=== PATIENT | male | born 1960 | race Caucasian/White ===

== ENCOUNTER 2024-02-12 15:15 | Inpatient (IN) | payer BC, MEDICARE, SELFPAY ==
[2024-02-12 15:45] VITALS: BP 121/67; PULSE 83; RESP 16; TEMP 36.9; O2SAT 96; BMI 29.0
[2024-02-12 18:00] VITALS: BP 121/67; PULSE 83; RESP 16; TEMP 36.9; O2SAT 98
[2024-02-12] MEDS: oxyCODONE 5 MG Tablet PO (21:19)
[2024-02-12 22:00] VITALS: PULSE 83; O2SAT 98
[2024-02-12] MEDS: Pregabalin 50 MG Capsule PO (22:08)
[2024-02-12] MEDS: Senna/Docusate Sodium 1 Tablet 2 TABLET PO (22:08)
[2024-02-12] MEDS: Methocarbamol 750 MG Tablet PO (22:08)
[2024-02-12] MEDS: Atorvastatin Calcium 10 MG Tablet PO (22:08)
[2024-02-12] MEDS: Acetaminophen 500 MG Tablet 1000 MG PO (22:08)
[2024-02-12] MEDS: Heparin Injection (Vial) 5,000 UNIT/ML VIAL 5000 UNIT SC (22:09)
[2024-02-13] MEDS: oxyCODONE 5 MG Tablet PO ×2 (03:53→10:05)
[2024-02-13 05:33] VITALS: BP 127/56; PULSE 74; RESP 16; TEMP 36.7; O2SAT 97; BMI 28.8
[2024-02-13] MEDS: Methocarbamol 750 MG Tablet PO ×3 (06:20→21:19)
[2024-02-13] MEDS: Acetaminophen 500 MG Tablet 1000 MG PO ×3 (06:20→21:18)
[2024-02-13] MEDS: Levothyroxine 137 MCG Tablet PO (06:20)
[2024-02-13] MEDS: Heparin Injection (Vial) 5,000 UNIT/ML VIAL 5000 UNIT SC ×3 (06:20→21:23)
[2024-02-13 08:04] LABS: Hematocrit 21.8 % (40-54); Hemoglobin 7.3 g/dL (13.0-16.5); Mean Corp Hgb Conc 33.5 g/dL (32-36); Mean Corpuscular Hgb 34.3 pg (27.0-32.0); Mean Corpuscular Volume 102.3 fL (80-94); Mean Platelet Vol. 8.9 fl (6.2-12.0); POSITIVE COUNT YES; POSITIVE MORPHOLOGY YES; Platelet Count 402 K/mm3 (150-450); RBC Distribution Width CV 12.8 % (11.6-14.6); RBC Distribution Width SD 47.8 fl (35.1-43.9); Red Blood Count 2.13 M/mm3 (4.6-6.2); White Blood Count 10.2 K/mm3 (4.4-11.0)
[2024-02-13 08:07] LABS: Differential Indicated MANUAL DIFF
[2024-02-13] MEDS: Polyethylene Glycol 3350 17 GM PACKET PO (08:18)
[2024-02-13] MEDS: Pregabalin 50 MG Capsule PO ×2 (08:18→20:17)
[2024-02-13] MEDS: Tamsulosin HCl 0.4 MG Capsule PO (08:18)
[2024-02-13] MEDS: Calcium Carb/Vitamin D 1 TABLET Tablet PO (08:18)
[2024-02-13] MEDS: Multivitamins,Therapeutic Tablet 1 TABLET PO (08:18)
[2024-02-13] MEDS: NIFEdipine 30 MG Tablet PO (08:19)
[2024-02-13] MEDS: Senna/Docusate Sodium 1 Tablet 2 TABLET PO (08:19)
[2024-02-13] MEDS: Lisinopril 20 MG Tablet PO (08:19)
[2024-02-13 08:40] LABS: Eosinophil 1 % (0-5); Lymphocyte 20 % (19-41); Metamyelocyte 5 % (0-1); Monocyte 1 % (0-10); Myelocyte 2 % (0-0); Neutrophil-Band 5 % (0-5); Neutrophil-Segmented 66 % (47-70); Total Cells Counted 100 (MANUAL DIFF)
[2024-02-13 08:41] LABS: Absolute Lymphocyte Count 2.03 X10^3/uL (0.83-4.51); Absolute Neutrophil Count 7.2 X10^3/uL (2.0-7.7); Hypochromasia 1+; Platelet Estimate ADEQUATE (ADEQ); Red Cell Morphology N CYTIC NORMAL (NORM C&C)
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
[2024-02-13 10:00] VITALS: PULSE 85; O2SAT 98
--- NOTE | 2024-02-13 11:23 | REHABEVAL_ITS ---
Admission Information Primary Diagnosis:: Debility secondary to lumbar laminectomy/fusion/lumbar canal stenosis Status Changes from Prescreening?: No changes Identified Actual Problem List:: Skin Intergrity, Pain, ALteration in Cmfrt, Bladder Incontinence (Urine retention), Bowel, Constipation, Alteration in Sleep, Mobility Impaired, Self Care Deficit, BP, Hypertension, Fluid Change-Dehydration and Alteration-Leisure Activ. Potential Problem List:: DVT, Bleeding, Infection, UTI, Aspiration, Falls, Skin Integrity and Depression Risk of Complications DVT: BELKYS Hose and - (Heparin 5000 units SQ every 8 hours) Bleeding: Monitor Lab Values, Nursing to Teach Precautions for anti-coagulation therapy., Wound, if applicable, to be assessed every shift. and Stroke patients assessed for lethargy or change in status. Infection: Clinical Staff to Monitor for S/S of infection: and S/S of infection include fever, redness, warmth, etc. Urinary Tract Infection: Monitor for frequency, burning, discomfort, or incontinence. and Nursing will obtain urine sample for urinalysis and C&S when ordered. Aspiration: Clinical staff will monitor for coughing, drooling, congestion., Speech will evaluate swallowing and dsyphasia. and Nursing will monitor patient swallowing during meals. Falls: Patient will be evaluated for Fall Precautions and Patient will be placed on Fall Precautions as indicated per protocol. Skin Breakdown: Nursing will assess skin daily using assessment tool. and Nursing will place on Skin Breakdown Precautions as indicated. Pain: Clinical staff will assess patient's pain level per protocol., Medications will be given, if needed, and the pain level reassessed. and Other methods: Massage, distraction, decrease stimulus, etc. used PRN. Plan of Care Patient requires physician specializing in physical medicine and rehab oversight to provide close medical supervision of rehab issues including: Pain Management, Sleep Problems, Bowel and Bladder, Medical and co-morbidity Management, DVT prophylaxis, Rehabilitation Leadership and Coordination of treatment team Patient needs Physical Therapy: For a minimum of 1 hour and At least 5 out of 7 days Patient needs Physical Therapy to improve:: Mobility, Strengthening, Transfers, Stretching, ROM, Endurance, Stairs, Gait and Balance Patient needs Occupational Therapy: For a minimum of 1 hour and At least 5 out of 7 days Patient needs Occupational Therapy to improve ADL's incl.: Eating, Grooming, Bathing, Dressing, Toileting, Toilet transfers, Community Reintegration, Higher functioning activities, Household tasks, Adaptive Equipment, Splinting and Other activities as determined Patient requires 24/7 Rehabilitation Nursing for: Pain Issues, Identifying and preventing risk factors, Monitoring and reporting current medical conditions, Assisting with ambulation, transfer, and all ADL's, Teaching patients about disease process and medications, Family teaching, Providing safe environment, Bowel and Bladder Issues, Skin integrity and Medication Management Patient needs Effervescent Salts Compounder/ Case Management for: Discharge Planning, Arranging Home Equipment or Services and Family Interventions Patient needs Dietary and Nutrition Services for: Adequate Nutrition, Nutritional Supplements and Nutritional Education Goals Goals Patient will remain: free from falls Patient will perform eating at: MOD I level of assist. Patient will perform bed mobility at: MOD I level of assist. Patient will complete transfers from bed to chair at: MOD I level of assist. Patient will ambulate: - (225 feet with least restrictive device at standby assist on various surfaces) Patient will complete upper body dressing at: MOD I level of assist. Patient will complete lower body dressing at: MOD I level of assist. (Mod I with adaptive equipment as needed) Patient will complete toilet transfer at: MOD I level of assist. Patient will complete toileting at: MOD I level of assist. Patient will perform bathing at: MOD I level of assist. (Upper body bathing independently and lower body bathing at mod I with adaptive equipment as needed) Patient will perform Tub/Shower transfer at: - (Supervision with DME as needed) Patient will complete grooming at: MOD I level of assist. Patient will complete home management skills at: MOD I level of assist. Patient will achieve: - (3 short curb steps with wheeled walker at contact-guard assist) Patient will have pain level of: of 3 or less Patient's skin will: remain intact Patient will receive: adequate nutrition. Discharge Planning Pt Prognosis for Sig. Practical Improv. w/in Reasonable Time: Good Estimated Length of stay (days): 21 Anticipated D/C Destination: Home with Outpt Therapy Was Preadmission Assessment Accurate?: Yes
[2024-02-13 11:29] LABS: ALB/GLOB Ratio 0.7 RATIO (0.9-2.4); AST(SGOT) 69 U/L (15-37); Alanine Aminotransfer ALT/SGPT 90 U/L (16-61); Albumin, Serum 2.4 g/dL (3.2-5.0); Alkaline Phosphatase 253 U/L (45-117); Anion Gap 5 (5-15); BUN 20 mg/dL (7-18); BUN/Creat Ratio 17.4 RATIO (10-20); Calcium,Total 8.5 mg/dL (8.5-10.1); Chloride 98 mmol/L (98-107); Creatinine, Serum 1.15 mg/dL (0.70-1.30); EST Glomerular Filtration Rate 68 mL/min (>60); Est Glom Filt Rate - Afr Amer 82 mL/min (>60); Estimated Creatinine Clearance 72.72 ml/min; Globulin 3.6 g/dL (2.2-4.2); Glucose 109 mg/dL (74-106); Magnesium 2.3 mg/dL (1.6-2.6); Phosphorus 2.2 mg/dL (2.5-4.9); Potassium 4.4 mmol/L (3.5-5.1); Sodium Level 131 mmol/L (136-145)
[2024-02-13 12:47] LABS: Mucous, Urine 0 SEEN /hpf (<or=2+); Squamous Epithelial Cells - UA 0 SEEN /hpf (0-5)
[2024-02-13 12:58] LABS: Color, Urine Yellow (Yellow); Glucose, Dipstick Normal (Normal); Ketone-Dipstick Negative (Negative); Leukocyte Esterase-Dipstick 500 /ul (Negative); Nitrite-Dipstick Negative (Negative); Occult Blood-Urine 10 /ul (Negative); Protein-Dipstick 15 mg/dl (Negative); Urine Bilirubin Dipstick Negative (Negative); Urine Clarity Clear (Clear); Urine Urobilinogen Normal (Normal); Urine pH 6.5 (5.0 - 8.0)
[2024-02-13 13:17] LABS: Bacteria 1+ /hpf (None Seen); Red Blood Cells-Urine 0-5 SEEN /hpf (0-5); White Blood Cells 5-10 SEEN /hpf (0-5)
[2024-02-13] MEDS: oxyCODONE 5 MG Tablet 10 MG PO ×2 (13:48→21:18)
[2024-02-13] MEDS: Magnesium Hydroxide 30 ML UDC PO (15:49)
[2024-02-13] MEDS: Ensure Plus High Protein 120 ML LIQUID PO (17:29)
[2024-02-13 18:00] VITALS: BP 112/51; PULSE 81; RESP 16; TEMP 36.6; O2SAT 99
[2024-02-13 21:00] VITALS: PULSE 81; RESP 16; O2SAT 99
[2024-02-13] MEDS: Atorvastatin Calcium 10 MG Tablet PO (21:19)
[2024-02-13] MEDS: Na Biphos/Potassium Phosphate PACKET 1 PACKET PO (21:40)
[2024-02-14] MEDS: oxyCODONE 5 MG Tablet PO ×2 (02:32→12:52)
[2024-02-14] MEDS: Acetaminophen 500 MG Tablet 1000 MG PO ×3 (05:28→21:37)
[2024-02-14] MEDS: oxyCODONE 5 MG Tablet 10 MG PO ×3 (05:28→21:36)
[2024-02-14] MEDS: Na Biphos/Potassium Phosphate PACKET 1 PACKET PO ×3 (05:29→21:36)
[2024-02-14] MEDS: Methocarbamol 750 MG Tablet PO ×3 (05:29→21:36)
[2024-02-14] MEDS: Heparin Injection (Vial) 5,000 UNIT/ML VIAL 5000 UNIT SC ×3 (05:29→21:36)
[2024-02-14] MEDS: Levothyroxine 137 MCG Tablet PO (05:29)
[2024-02-14 06:00] VITALS: BP 149/62; PULSE 82; RESP 18; TEMP 37.2; O2SAT 93
[2024-02-14] MEDS: Ensure Plus High Protein 120 ML LIQUID PO ×3 (08:08→17:46)
[2024-02-14] MEDS: Multivitamins,Therapeutic Tablet 1 TABLET PO (08:09)
[2024-02-14] MEDS: Polyethylene Glycol 3350 17 GM PACKET PO (10:08)
[2024-02-14] MEDS: Senna/Docusate Sodium 1 Tablet 2 TABLET PO ×2 (10:09→21:39)
[2024-02-14] MEDS: Tamsulosin HCl 0.4 MG Capsule PO (10:09)
[2024-02-14] MEDS: Lisinopril 20 MG Tablet PO (10:10)
[2024-02-14] MEDS: NIFEdipine 30 MG Tablet PO (10:10)
[2024-02-14] MEDS: Calcium Carb/Vitamin D 1 TABLET Tablet PO (10:10)
[2024-02-14 17:26] VITALS: BP 104/53; PULSE 83; RESP 16; TEMP 36.7; O2SAT 95
[2024-02-14] MEDS: Pregabalin 50 MG Capsule PO (20:22)
[2024-02-14 21:04] VITALS: O2SAT 97
[2024-02-14] MEDS: Atorvastatin Calcium 10 MG Tablet PO (21:36)
[2024-02-15] MEDS: oxyCODONE 5 MG Tablet PO ×2 (03:14→17:09)
[2024-02-15 06:00] VITALS: BP 156/63; PULSE 78; RESP 17; TEMP 37.2; O2SAT 100
[2024-02-15] MEDS: oxyCODONE 5 MG Tablet 10 MG PO ×3 (06:28→23:31)
[2024-02-15] MEDS: Heparin Injection (Vial) 5,000 UNIT/ML VIAL 5000 UNIT SC ×3 (06:28→22:32)
[2024-02-15] MEDS: Acetaminophen 500 MG Tablet 1000 MG PO ×3 (06:28→22:34)
[2024-02-15] MEDS: Methocarbamol 750 MG Tablet PO ×3 (06:29→23:31)
[2024-02-15] MEDS: Levothyroxine 137 MCG Tablet PO (06:29)
[2024-02-15] MEDS: Na Biphos/Potassium Phosphate PACKET 1 PACKET PO ×2 (06:33→13:53)
[2024-02-15] MEDS: Calcium Carb/Vitamin D 1 TABLET Tablet PO (08:36)
[2024-02-15] MEDS: Tamsulosin HCl 0.4 MG Capsule PO (08:36)
[2024-02-15] MEDS: Lisinopril 20 MG Tablet PO (08:46)
[2024-02-15] MEDS: Multivitamins,Therapeutic Tablet 1 TABLET PO (08:47)
[2024-02-15] MEDS: Polyethylene Glycol 3350 17 GM PACKET PO (08:47)
[2024-02-15] MEDS: NIFEdipine 30 MG Tablet PO (08:47)
[2024-02-15] MEDS: Ensure Plus High Protein 120 ML LIQUID PO ×3 (08:47→17:10)
[2024-02-15] MEDS: Senna/Docusate Sodium 1 Tablet 2 TABLET PO ×2 (08:47→22:33)
[2024-02-15] MEDS: Pregabalin 50 MG Capsule PO (22:32)
[2024-02-15] MEDS: Atorvastatin Calcium 10 MG Tablet PO (22:33)
[2024-02-16] MEDS: oxyCODONE 5 MG Tablet PO (03:03)
[2024-02-16] MEDS: Heparin Injection (Vial) 5,000 UNIT/ML VIAL 5000 UNIT SC ×3 (05:23→22:00)
[2024-02-16] MEDS: oxyCODONE 5 MG Tablet 10 MG PO ×3 (05:24→21:53)
[2024-02-16] MEDS: Methocarbamol 750 MG Tablet PO ×2 (05:24→13:33)
[2024-02-16] MEDS: Levothyroxine 137 MCG Tablet PO (05:25)
[2024-02-16] MEDS: Acetaminophen 500 MG Tablet 1000 MG PO ×2 (05:25→13:23)
[2024-02-16 05:29] VITALS: BP 153/69; PULSE 82; RESP 15; TEMP 36.8; O2SAT 99
[2024-02-16] MEDS: Magnesium Hydroxide 30 ML UDC PO (06:01)
[2024-02-16] MEDS: Polyethylene Glycol 3350 17 GM PACKET PO (08:23)
[2024-02-16] MEDS: Ensure Plus High Protein 120 ML LIQUID PO ×3 (08:23→17:11)
[2024-02-16] MEDS: NIFEdipine 30 MG Tablet PO (08:24)
[2024-02-16] MEDS: Lisinopril 20 MG Tablet PO (08:24)
[2024-02-16] MEDS: Senna/Docusate Sodium 1 Tablet 2 TABLET PO ×2 (08:24→21:53)
[2024-02-16] MEDS: Multivitamins,Therapeutic Tablet 1 TABLET PO (08:24)
[2024-02-16] MEDS: Tamsulosin HCl 0.4 MG Capsule PO (08:24)
[2024-02-16] MEDS: Calcium Carb/Vitamin D 1 TABLET Tablet PO (08:24)
--- NOTE | 2024-02-16 10:39 | PN_ITS ---
Subjective Subjective Will was seen on team rounds today. His significant other was present in the room. All questions were answered to their satisfaction. Afebrile VSS -blood pressure over the weekend has ranged from 104/53 to 153/69 this a.m. Heart rate is within normal limits. Maintaining appropriate oxygen saturation on RA 93 to 100% on room air..... Was placed on a nasal cannula last night, not clear to me why. Oral intake - FOOD good FLUIDS fair at best Discussed with nursing -nursing states he was uncomfortable last night and refused the Polar Care. He received 5 mg of oxycodone 3 AM but states it does not help. He is on scheduled oxycodone 10 mg 3 times daily and 5 mg every 4 hours for breakthrough pain. Lyrica was decreased to 50 mg once daily at bedtime when he arrived rehab because he was too somnolent during the day. Reviewed the THERAPY notes Medication list reviewed. Will tells me that he did not sleep last night due to pin in the back, Left buttock and left thigh. The pain is sometimes burning and at others tightening. Oxycodone does not help. He is also complaining of lightheadedness and fatiguing easily. He is sleepy today because he did not sleep last night. He tells me he is feeling depressed because he did not expect to feel this way postoperatively. His significant other agrees with him being depressed. He denies suprapubic pain and also denies nausea and flank pain. Appetite has been decreased. No calf pain. Objective Data Objective Data Vital Signs: Vital Signs Temp Pulse Resp BP Pulse Ox O2 Del Method O2 Flow Rate 98.2 F 82 15 153/69 H 99 Nasal Cannula 2 02/16/24 05:29 02/16/24 05:29 02/16/24 05:29 02/16/24 05:29 02/16/24 05:29 02/16/24 07:27 02/16/24 07:27 Oxygen Flow Rate (L/min) 2 Oxygen Delivery Method Nasal Cannula Weight: 201 lb 0.985 oz Body Mass Index (BMI) 28.8 Intake & Output: Intake and Output for Last 24 Hours 02/14/24 02/15/24 02/16/24 23:59 23:59 23:59 Intake Total 2110 / 2260 910 / 1060 540 / 540 Output Total 1775 / 1775 2350 / 2750 925 / 925 Balance 335 / 485 -1440 / -1690 -385 / -385 Lab / Micro Data 02/16/24 10:54 02/16/24 10:54 Micro: Microbiology 02/13/24 18:55 Stool Stool Occult Blood (TSERING) - Final Occult Blood Positive Social Homelessness:: Sheltered Physical Exam Const Constitutional Narrative: Drowsy, appropriate when awakened. Flat affect. Makes good eye contact with me. General Appearance: cooperative HEENT Mouth: dry mucous membranes Resp normal respiratory effort and clear to auscultation bilaterally Effort and Inspection: Negative for tachypneic Cardio regular rate and regular rhythm GI normal to inspection, nondistended, normoactive bowel sounds, soft to palpation and non-tender Extremity no calf tenderness Extremity Narrative: mild BL ankle edema Psych Mood & Affect: depressed and flat affect Assessment & Plan Assessment/Plan (1) Physical debility: (2) Spinal stenosis of lumbar region: QUALIFIERS: Neurogenic claudication status: with neurogenic claudication Qualified Code(s): M48.062 - Spinal stenosis, lumbar region with neurogenic claudication (3) History of lumbar laminectomy for spinal cord decompression: PLAN: T10-S1 at [facility] on 02/05/2024. (4) S/P lumbar fusion: (5) Acute blood loss anemia: (6) Urine retention: (7) Alcohol use: (8) Heme positive stool: (9) Acute renal failure: QUALIFIERS: Acute renal failure type: unspecified Qualified Code(s): N17.9 - Acute kidney failure, unspecified (10) Hyponatremia: PLAN: Plan 1. Continue therapy 2. Increase the at bedtime Lyrica to 75 mg and add gabapentin 100 mg twice daily 3. CBC with differential, BMP, liver profile and phosphorus today 4. Add Protonix 40 mg daily to the current drug regimen in light of heme positive stool. 5. Urine osmolality, serum osmolality, urine sodium and urine creatinine Charges/Coding Visit Charges Inpatient E&M: 96315 Subs Hosp L2
[2024-02-16 11:03] LABS: Hemoglobin 7.5 g/dL (13.0-16.5); Mean Corp Hgb Conc 32.6 g/dL (32-36); Mean Corpuscular Hgb 33.8 pg (27.0-32.0); Mean Corpuscular Volume 103.6 fL (80-94); Mean Platelet Vol. 9.1 fl (6.2-12.0); POSITIVE COUNT YES; POSITIVE MORPHOLOGY YES; Platelet Count 567 K/mm3 (150-450); RBC Distribution Width CV 13.2 % (11.6-14.6); RBC Distribution Width SD 48.9 fl (35.1-43.9); Red Blood Count 2.22 M/mm3 (4.6-6.2); White Blood Count 10.7 K/mm3 (4.4-11.0)
[2024-02-16 11:15] LABS: Differential Indicated MANUAL DIFF
[2024-02-16 11:26] LABS: AST(SGOT) 36 U/L (15-37); Alanine Aminotransfer ALT/SGPT 54 U/L (16-61); Albumin, Serum 2.4 g/dL (3.2-5.0); Alkaline Phosphatase 258 U/L (45-117); Anion Gap 4 (5-15); BUN 19 mg/dL (7-18); BUN/Creat Ratio 12.9 RATIO (10-20); Bilirubin, Direct 0.11 mg/dL (0.00-0.30); Calcium,Total 8.8 mg/dL (8.5-10.1); Chloride 92 mmol/L (98-107); Creatinine, Serum 1.47 mg/dL (0.70-1.30); EST Glomerular Filtration Rate 51 mL/min (>60); Est Glom Filt Rate - Afr Amer 62 mL/min (>60); Estimated Creatinine Clearance 56.89 ml/min; Globulin 3.5 g/dL (2.2-4.2); Glucose 113 mg/dL (74-106); Phosphorus 3.6 mg/dL (2.5-4.9); Potassium 4.9 mmol/L (3.5-5.1); Protein, Total 5.9 g/dL (6.4-8.2); Sodium Level 126 mmol/L (136-145)
[2024-02-16 11:35] LABS: Basophil 1 % (0-1); Eosinophil 1 % (0-5); Lymphocyte 7 % (19-41); Metamyelocyte 2 % (0-1); Monocyte 5 % (0-10); Neutrophil-Band 3 % (0-5); Neutrophil-Segmented 81 % (47-70); Total Cells Counted 100 (MANUAL DIFF)
[2024-02-16 11:36] LABS: Anisocytosis RARE; Hypochromasia 1+
[2024-02-16 11:37] LABS: Absolute Lymphocyte Count 0.75 X10^3/uL (0.83-4.51); Platelet Estimate MOD INC (ADEQ)
[2024-02-16 12:10] LABS: Osmolality, Serum 274 mOsm/KG (280-301)
[2024-02-16] MEDS: Gabapentin 100 MG Capsule PO ×2 (13:24→17:11)
[2024-02-16] MEDS: Pantoprazole Sodium 40 MG Tablet PO (13:24)
--- NOTE | 2024-02-16 13:54 | CASEMGMT ---
Social Work IDT met with patient and SO for Team meeting. Discussed patient's progress in PT/OT/SN. Educated to Lynndyl CM insurance with [employer] 1/2 and continued stay is not guaranteed with each review. Currently, pt is needing assistance from one person and works full-time (4, 10 hour days and cannot take time off work, and is not eligible for FMLA since they are not ). Pt would need to regain further independence to safely return home. SW to assist with DC planning. Will ReTeam next week. Rosibel Larios, [employer]CH[employer]IC
[2024-02-16 14:20] LABS: Osmolality, Urine 357 mOsm/KG; Urine Sodium 57 mmol/L (Not Establ.)
[2024-02-16 15:28] LABS: Pathologist Review Reviewed
[2024-02-16] MEDS: 0.9% Normal Saline (1000mL) 1,000 ML 75 ML IV (15:55)
[2024-02-16 16:58] LABS: Bacteria 0 SEEN /hpf (None Seen); Mucous, Urine 0 SEEN /hpf (<or=2+); Red Blood Cells-Urine 0 SEEN /hpf (0-5); White Blood Cells 0 SEEN /hpf (0-5)
[2024-02-16 17:05] LABS: Color, Urine Straw (Yellow); Glucose, Dipstick Normal (Normal); Ketone-Dipstick Negative (Negative); Leukocyte Esterase-Dipstick Negative /ul (Negative); Nitrite-Dipstick Negative (Negative); Occult Blood-Urine 50 /ul (Negative); Protein-Dipstick Negative (Negative); Specific Gravity, Urine 1.005 (1.002-1.030); Urine Bilirubin Dipstick Negative (Negative); Urine Clarity Clear (Clear); Urine Urobilinogen Normal (Normal)
[2024-02-16 17:31] LABS: Squamous Epithelial Cells - UA 0-5 SEEN /hpf (0-5)
[2024-02-16 18:00] VITALS: BP 135/62; PULSE 80; RESP 15; TEMP 36.9; O2SAT 94
[2024-02-16 19:58] VITALS: BP 150/74; PULSE 84; RESP 20; TEMP 37.4; O2SAT 99
[2024-02-16 20:41] VITALS: BP 140/73; PULSE 87; RESP 20; TEMP 37.5; O2SAT 97
[2024-02-16 20:45] VITALS: BP 159/68; PULSE 83; RESP 20; TEMP 37.7; O2SAT 99
[2024-02-16] MEDS: MELATONIN 3 MG TABLET PO (20:50)
[2024-02-16] MEDS: Pregabalin 75 MG Capsule PO (20:50)
[2024-02-16] MEDS: Methocarbamol 500 MG Tablet 1000 MG PO (20:50)
[2024-02-16] MEDS: Mirtazapine 15 MG Tablet PO (21:52)
[2024-02-16] MEDS: Atorvastatin Calcium 10 MG Tablet PO (21:54)
[2024-02-16 22:57] VITALS: BP 164/76; PULSE 81; RESP 16; TEMP 37.3; O2SAT 96
[2024-02-17] VITALS: BP 147/75; PULSE 80; RESP 16; TEMP 36.9; O2SAT 97
[2024-02-17] MEDS: oxyCODONE 5 MG Tablet 10 MG PO ×2 (02:25→08:51)
--- NOTE | 2024-02-17 05:43 | NURSING ---
Pt. refused bath and dressing
[2024-02-17 05:53] LABS: Hematocrit 24.8 % (40-54); Hemoglobin 8.4 g/dL (13.0-16.5); Mean Corp Hgb Conc 33.9 g/dL (32-36); Mean Corpuscular Hgb 33.9 pg (27.0-32.0); Mean Platelet Vol. 9.2 fl (6.2-12.0); Platelet Count 544 K/mm3 (150-450); RBC Distribution Width CV 15.3 % (11.6-14.6); RBC Distribution Width SD 55.8 fl (35.1-43.9); Red Blood Count 2.48 M/mm3 (4.6-6.2); White Blood Count 11.1 K/mm3 (4.4-11.0)
[2024-02-17 06:00] VITALS: BP 132/46; PULSE 79; RESP 20; TEMP 37.4; O2SAT 96
[2024-02-17 06:14] LABS: Anion Gap 3 (5-15); BUN 14 mg/dL (7-18); BUN/Creat Ratio 11.2 RATIO (10-20); Calcium,Total 8.5 mg/dL (8.5-10.1); Chloride 98 mmol/L (98-107); Creatinine, Serum 1.25 mg/dL (0.70-1.30); EST Glomerular Filtration Rate 62 mL/min (>60); Est Glom Filt Rate - Afr Amer 75 mL/min (>60); Glucose 96 mg/dL (74-106); Potassium 5.1 mmol/L (3.5-5.1); Sodium Level 131 mmol/L (136-145)
[2024-02-17] MEDS: Methocarbamol 500 MG Tablet 1000 MG PO (06:25)
[2024-02-17] MEDS: Heparin Injection (Vial) 5,000 UNIT/ML VIAL 5000 UNIT SC ×3 (06:26→21:04)
[2024-02-17] MEDS: Levothyroxine 137 MCG Tablet PO (06:26)
[2024-02-17] MEDS: 0.9% Normal Saline (1000mL) 1,000 ML 75 ML IV (08:06)
[2024-02-17] MEDS: Polyethylene Glycol 3350 17 GM PACKET PO (08:47)
[2024-02-17 08:50] VITALS: BP 134/63; PULSE 80; RESP 16; O2SAT 94
[2024-02-17] MEDS: Pantoprazole Sodium 40 MG Tablet PO (08:50)
[2024-02-17] MEDS: Lisinopril 20 MG Tablet PO (08:50)
[2024-02-17] MEDS: NIFEdipine 30 MG Tablet PO (08:50)
[2024-02-17] MEDS: Calcium Carb/Vitamin D 1 TABLET Tablet PO (08:51)
[2024-02-17] MEDS: Multivitamins,Therapeutic Tablet 1 TABLET PO (08:51)
[2024-02-17] MEDS: Tamsulosin HCl 0.4 MG Capsule PO (08:51)
[2024-02-17] MEDS: Gabapentin 100 MG Capsule PO (08:51)
--- NOTE | 2024-02-17 08:59 | PCM.PROGNOTE ---
Subjective Subjective Lew is ranged from 98.5 to 99.9. He was receiving blood products. VSS -blood pressure has ranged from 132/46 this morning to 164/76 at 11:00 last night. Heart rate is within normal limits. Maintaining appropriate oxygen saturation on RA Oral intake - FOOD for at times but ate 75 to 100% of his breakfast today FLUIDS he took 1540 p.o. yesterday but fluid balance was -1835. Overnight there was positive for 48. IV fluids did not get started yesterday until late in the day. Discussed with nursing -pain was better last night but he slept fairly well after the pain was controlled. Reviewed the THERAPY notes Medication list reviewed. White blood cell count today is 11.1. Hemoglobin is 8.4 following transfusion of 1 unit of packed red blood cells yesterday. Platelet count is elevated at 544,000. Sodium is up to 131 from 126 yesterday after 1 L of normal saline. The second liter is currently running. Potassium is 5.1. BUN is down to 14 from 19 and the creatinine is 1.25, down from 1.47 yesterday. UA yesterday showed 0 WBCs per high-power field and no bacteria. Objective Data Objective Data Vital Signs: Vital Signs Temp Pulse Resp BP Pulse Ox O2 Del Method O2 Flow Rate 99.4 F H 79 20 H 132/46 H 96 Nasal Cannula 2 02/17/24 06:00 02/17/24 06:00 02/17/24 06:00 02/17/24 06:00 02/17/24 06:00 02/17/24 06:00 02/17/24 06:00 Oxygen Flow Rate (L/min) 2 Oxygen Delivery Method Nasal Cannula Weight: 201 lb 0.985 oz Body Mass Index (BMI) 28.8 Intake & Output: Intake and Output for Last 24 Hours 02/15/24 02/16/24 02/17/24 23:59 23:59 23:59 Intake Total 910 / 1060 1540 / 1540 2340 / 2340 Output Total 2350 / 2750 3375 / 3375 1900 / 1900 Balance -1440 / -1690 -1835 / -1835 440 / 440 Lab / Micro Data 02/17/24 05:32 02/17/24 05:32 Labs: Laboratory Results - last 24 hr 02/13/24 07:57: Diff Path Review Reviewed 02/16/24 10:54: WBC 10.7, RBC 2.22 L, Hgb 7.5 L, Hct 23.0 L, MCV 103.6 H, MCH 33.8 H, MCHC 32.6, RDW Std Deviation 48.9 H, RDW Coeff of Vasquez 13.2, Plt Count 567 H, MPV 9.1, Neut % (Auto) Not Reportable, Absolute Neuts (auto) 9.0 H, Absolute Lymphs (auto) 0.75 L, Total Counted 100, Neutrophils % (Manual) 81 H, Band Neutrophils % 3, Lymphocytes % (Manual) 7 L, Monocytes % (Manual) 5, Eosinophils % (Manual) 1, Basophils % (Manual) 1, Metamyelocytes % 2 H, Diff Path Review June, Platelet Estimate MOD INC, Hypochromasia 1+, Anisocytosis RARE, Sodium 126 L, Potassium 4.9, Chloride 92 L, Carbon Dioxide 30.0, Anion Gap 4 L, BUN 19 H, Creatinine 1.47 H, Estim Creat Clear Calc 56.89, Est GFR (MDRD) Af Amer 62, Est GFR (MDRD) Non-Af 51 L, BUN/Creatinine Ratio 12.9, Glucose 113 H, Serum Osmolality 274 L, Calcium 8.8, Phosphorus 3.6, Total Bilirubin 0.40, Direct Bilirubin 0.11, AST 36, ALT 54, Alkaline Phosphatase 258 H, Total Protein 5.9 L, Albumin 2.4 L, Globulin 3.5 02/16/24 12:30: Urine Color Straw, Urine Clarity Clear, Urine pH 7.0, Ur Specific [place] 1.005, Urine Protein Negative, Urine Glucose (UA) Normal, Urine Ketones Negative, Urine Occult Blood 50 H, Urine Nitrite Negative, Urine Bilirubin Negative, Urine Urobilinogen Normal, Ur Leukocyte Esterase Negative, Urine RBC 0 SEEN, Urine WBC 0 SEEN, Ur Squamous Epith Cells 0-5 SEEN, Urine Bacteria 0 SEEN, Urine Mucus 0 SEEN 02/16/24 13:50: Urine Osmolality 357, Ur Random Sodium 57, Urine Creatinine 97.20 02/16/24 16:05: Blood Type A POSITIVE, Antibody Screen NEGATIVE, Crossmatch See Detail 02/17/24 05:32: WBC 11.1 H, RBC 2.48 L, Hgb 8.4 L, Hct 24.8 L, MCV 100.0 H, MCH 33.9 H, MCHC 33.9, RDW Std Deviation 55.8 H, RDW Coeff of Vasquez 15.3 H, Plt Count 544 H, MPV 9.2, Sodium 131 L, Potassium 5.1, Chloride 98, Carbon Dioxide 30.0, Anion Gap 3 L, BUN 14, Creatinine 1.25, Estim Creat Clear Calc 66.90, Est GFR (MDRD) Af Amer 75, Est GFR (MDRD) Non-Af 62, BUN/Creatinine Ratio 11.2, Glucose 96, Calcium 8.5 Micro: Microbiology 02/13/24 18:55 Stool Stool Occult Blood (TSERING) - Final Occult Blood Positive Social Homelessness:: Sheltered Physical Exam Const Constitutional Narrative: not quite alert but, talking with me and giving me appropriate answers. He is having dystonic/jerking movements of the RUE and can not control this. Tells me that he slept better last night but, has been getting Oxycodone about every 4 hours. He tells me that it helps with the pain. Still having 6/10 pain today in the back and radiating into the leg. He also has tingling of the R leg. HEENT Mouth: dry mucous membranes Neck supple Resp normal respiratory effort and clear to auscultation bilaterally Effort and Inspection: Negative for tachypneic Cardio regular rate and regular rhythm GI normal to inspection, nondistended, normoactive bowel sounds, soft to palpation and non-tender Extremity no calf tenderness Extremity Narrative: mild BL ankle edema Skin Wound Narrative: The incision is intact with no dehiscence. There is no significant carissa-incisional erythema and no purulent discharge. There is a localized swelling on the right side at the superior pole of the incision. There is no redness there and there is no opening in the skin over the area. Did not really have any significant discomfort with palpation of this area. Neuro CN's II-XII intact bilaterally Psych cooperative Appearance: appropriate Mood & Affect: depressed and flat affect Assessment & Plan Assessment/Plan (1) Physical debility: (2) Spinal stenosis of lumbar region: QUALIFIERS: Neurogenic claudication status: with neurogenic claudication Qualified Code(s): M48.062 - Spinal stenosis, lumbar region with neurogenic claudication (3) History of lumbar laminectomy for spinal cord decompression: (4) S/P lumbar fusion: (5) Acute blood loss anemia: (6) Urine retention: (7) Alcohol use: (8) Heme positive stool: (9) Acute renal failure: QUALIFIERS: Acute renal failure type: unspecified Qualified Code(s): N17.9 - Acute kidney failure, unspecified PLAN: Due to dehydration (10) Hyponatremia: PLAN: Fractional excretion of sodium is consistent with prerenal azotemia. Sodium improved from 126-131 overnight after only 1 L of normal saline. He is to receive a second liter today. (11) Fever: QUALIFIERS: Fever type: unspecified Qualified Code(s): R50.9 - Fever, unspecified PLAN: Acetaminophen was placed on hold yesterday. The fever occurred when the blood transfusion was started and he was afebrile this morning. Will continue to monitor. UA was negative for infection and his lungs are clear to auscultation. He has no cough. There is a small localized area of swelling at the site. Her pole of the incision on the right side. ? abscess? seroma? Mild elevation in the WBC today....could be related to the transfusion. (12) Dystonia: PLAN: I suspect this is due to Lyrica. Will discontinue. PLAN: Plan 1. Continue therapy 2. Discontinue Lyrica and gabapentin due to dystonia today 3. Obtain an ultrasound of the localized swelling at the superior pole of the incision looking for fluid collection 4. Start OxyContin 10 mg p.o. twice daily and continue oxycodone 5 to 10 mg every 4 hours as needed for breakthrough pain 5. Continue Robaxin but make it PRN 6. If we are not able to get the pain controlled in the next 24-48 hours will consult pain management. He is very sensitive to medication. He tells me that if he takes a Tylenol PM he sleeps the whole next day. 7. Recheck a CBC with differential and a BMP in the AM. Charges/Coding Visit Charges Inpatient E&M: 10459 Subs Hosp L2
--- NOTE | 2024-02-17 09:45 | US_ITS ---
INDICATION: fluid collection/possible abscess -- superior pole of back incision EXAMINATION: Ultrasound of mid back TECHNIQUE: Targeted ultrasound examination of the mid back region and incision was performed. COMPARISON: No relevant prior comparison study available FINDINGS: No focal mass or abnormal fluid collections are seen in the area of interest. US/Chest IMPRESSION: No focal abnormality is seen. Electronically Signed: Bob Wagner MD at 15:28 EST ,
[2024-02-17 09:50] VITALS: BP 121/50; PULSE 83; RESP 16; O2SAT 96
--- NOTE | 2024-02-17 10:31 | NURSING ---
OT notified this nurse that patient felt like he was light headed and about to pass out. OT put patient back in bed, patient's vital signs 121/58, 95% on RA, HR 83 apical. Patient stated he does not feel dizzy but more woozy patient appears pale. HOB elevated, cool washcloth to forehead, water provided. Patient stated he was feeling better and just wanted to rest. RN aware, Physician notified, will continue to monitor.
[2024-02-17] MEDS: oxyCODONE HCl Cr 10 MG Tablet PO ×2 (11:23→21:04)
[2024-02-17] MEDS: Ensure Plus High Protein 120 ML LIQUID PO ×2 (12:03→17:07)
[2024-02-17 13:59] LABS: Pathologist Review Reviewed
[2024-02-17] MEDS: oxyCODONE 5 MG Tablet PO ×2 (17:17→22:50)
[2024-02-17 17:33] VITALS: BP 132/62; PULSE 81; RESP 18; TEMP 36.5; O2SAT 97
[2024-02-17] MEDS: Methocarbamol 750 MG Tablet PO (18:07)
[2024-02-17] MEDS: Atorvastatin Calcium 10 MG Tablet PO (21:04)
[2024-02-17] MEDS: Mirtazapine 15 MG Tablet PO (21:04)
[2024-02-17] MEDS: 0.9% Saline Lock 10 ML Syringe IV (22:49)
[2024-02-18] MEDS: oxyCODONE 5 MG Tablet PO ×2 (05:01→17:47)
[2024-02-18] MEDS: Levothyroxine 137 MCG Tablet PO (05:01)
[2024-02-18] MEDS: Heparin Injection (Vial) 5,000 UNIT/ML VIAL 5000 UNIT SC ×3 (05:02→22:04)
[2024-02-18] MEDS: Methocarbamol 750 MG Tablet PO ×2 (05:02→14:22)
[2024-02-18 05:07] VITALS: BP 159/75; PULSE 97; RESP 18; TEMP 37.3; O2SAT 99
[2024-02-18 06:21] LABS: Absolute Lymphocyte Count 1.08 X10^3/uL (0.83-4.51); Absolute Neutrophil Count 6.9 X10^3/uL (2.0-7.7); Basophil# 0.05 X10^3/uL; Basophil% 0.5 % (0-1); Eosinophil# 0.08 X10^3/uL; Eosinophils% 0.9 % (0-5); Hematocrit 26.6 % (40-54); Hemoglobin 8.5 g/dL (13.0-16.5); Lymphocyte # 1.08 X10^3/ul (0.83-4.51); Lymphocyte % 11.8 % (19-41); Mean Corpuscular Hgb 32.2 pg (27.0-32.0); Mean Corpuscular Volume 100.8 fL (80-94); Mean Platelet Vol. 8.9 fl (6.2-12.0); Monocyte# 0.65 X10^3/uL; Monocyte% 7.1 % (0-10); NRBC Flagged by Analyzer 0 % (0-5); Neutrophil # 6.93 X10^3/uL (2.7-7.7); Neutrophil % 75.6 % (47-70); Platelet Count 563 K/mm3 (150-450); RBC Distribution Width SD 54.4 fl (35.1-43.9); Red Blood Count 2.64 M/mm3 (4.6-6.2); White Blood Count 9.2 K/mm3 (4.4-11.0)
[2024-02-18 07:59] LABS: Anion Gap 7 (5-15); BUN 13 mg/dL (7-18); BUN/Creat Ratio 9.8 RATIO (10-20); Calcium,Total 8.4 mg/dL (8.5-10.1); Chloride 98 mmol/L (98-107); Creatinine, Serum 1.32 mg/dL (0.70-1.30); EST Glomerular Filtration Rate 58 mL/min (>60); Est Glom Filt Rate - Afr Amer 70 mL/min (>60); Estimated Creatinine Clearance 63.35 ml/min; Glucose 119 mg/dL (74-106); Potassium 4.4 mmol/L (3.5-5.1); Sodium Level 132 mmol/L (136-145)
[2024-02-18] MEDS: Multivitamins,Therapeutic Tablet 1 TABLET PO (08:20)
[2024-02-18] MEDS: Ensure Plus High Protein 120 ML LIQUID PO ×3 (09:20→17:42)
[2024-02-18] MEDS: NIFEdipine 30 MG Tablet PO (09:21)
[2024-02-18] MEDS: Lisinopril 20 MG Tablet PO (09:21)
[2024-02-18] MEDS: Pantoprazole Sodium 40 MG Tablet PO (09:21)
[2024-02-18] MEDS: Calcium Carb/Vitamin D 1 TABLET Tablet PO (09:21)
[2024-02-18] MEDS: Tamsulosin HCl 0.4 MG Capsule PO (09:21)
[2024-02-18] MEDS: oxyCODONE HCl Cr 10 MG Tablet PO ×2 (10:23→22:04)
[2024-02-18] MEDS: 0.9% Saline Lock 10 ML Syringe IV (11:36)
[2024-02-18 15:16] VITALS: BP 126/56; PULSE 77; RESP 16; TEMP 36.7; O2SAT 98
[2024-02-18 21:40] VITALS: PULSE 77; RESP 16; O2SAT 98
[2024-02-18] MEDS: Atorvastatin Calcium 10 MG Tablet PO (22:03)
[2024-02-18] MEDS: Mirtazapine 15 MG Tablet PO (22:03)
[2024-02-18] MEDS: MELATONIN 3 MG TABLET PO (22:07)
[2024-02-19 03:50] VITALS: BP 140/70; PULSE 77; RESP 16; TEMP 36.6; O2SAT 95
[2024-02-19] MEDS: Heparin Injection (Vial) 5,000 UNIT/ML VIAL 5000 UNIT SC ×3 (06:23→20:50)
[2024-02-19] MEDS: Levothyroxine 137 MCG Tablet PO (06:23)
[2024-02-19] MEDS: Polyethylene Glycol 3350 17 GM PACKET PO (08:02)
[2024-02-19] MEDS: Pantoprazole Sodium 40 MG Tablet PO (08:03)
[2024-02-19] MEDS: NIFEdipine 30 MG Tablet PO (08:03)
[2024-02-19] MEDS: Calcium Carb/Vitamin D 1 TABLET Tablet PO (08:03)
[2024-02-19] MEDS: Multivitamins,Therapeutic Tablet 1 TABLET PO (08:03)
[2024-02-19] MEDS: Tamsulosin HCl 0.4 MG Capsule PO (08:03)
[2024-02-19] MEDS: Lisinopril 20 MG Tablet PO (08:04)
[2024-02-19] MEDS: Ensure Plus High Protein 120 ML LIQUID PO ×3 (08:05→16:33)
--- NOTE | 2024-02-19 08:53 | PN.REHAB_ITS ---
Subjective Subjective Patient seen, examined. He is complaining of pain in mid back and lower back, also c/o muscle spasms, and numbness/tingling pain traveling down left leg. 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 Hemoglobin holding at 8.5 after 1 unit PRBC transfusion, ultrasound of back was negative for abscess or seroma. Dystonic movements resolved. Objective Data Objective Data Vital Signs: Vital Signs Temp Pulse Resp BP Pulse Ox O2 Del Method O2 Flow Rate 97.9 F 77 16 140/70 H 95 Room Air 2 02/19/24 03:50 02/19/24 03:50 02/19/24 03:50 02/19/24 03:50 02/19/24 03:50 02/19/24 03:50 02/17/24 06:00 Oxygen Flow Rate (L/min) 2 Oxygen Delivery Method Room Air Weight: 91.2 kg Body Mass Index (BMI) 28.8 Intake & Output: Intake and Output for Last 24 Hours 02/17/24 02/18/24 02/19/24 23:59 23:59 23:59 Intake Total 3880 / 4680 2430 / 2430 700 / 700 Output Total 2400 / 3450 3600 / 3600 850 / 850 Balance 1480 / 1230 -1170 / -1170 -150 / -150 Lab / Micro Data 02/18/24 06:06 02/18/24 06:06 Micro: Microbiology 02/13/24 18:55 Stool Stool Occult Blood (TSERING) - Final Occult Blood Positive Social Homelessness:: Sheltered Indicators for Scoring Admitted with or Primary Diagnosis of CVA/Stroke: No Hx of CVA/Stroke: No Physical Exam Const alert General Appearance: cooperative HEENT normocephalic Eyes PERRL and EOMs intact bilaterally Neck supple, no JVD and no carotid bruits Resp normal respiratory effort, normal air movement and clear to auscultation bilaterally Cardio regular rate and regular rhythm GI normal to inspection, nondistended, normoactive bowel sounds, non-tender and non-distended Extremity normal capillary refill General Extremity: Negative for edema Skin no rashes or lesions noted General Skin Exam: no breakdown Neuro Neuro Narrative: Left lower extremity weakness. Psych affect normal Appearance: appropriate Assessment & Plan Assessment/Plan (1) Debility: (2) Low back pain: (3) Status post lumbar laminectomy: (4) COPD (chronic obstructive pulmonary disease): (5) Hyperlipidemia: (6) Hypertension: (7) Hypercholesterolemia with hypertriglyceridemia: (8) Hypothyroidism: (9) BPH (benign prostatic hyperplasia): (10) Muscle spasm: PLAN: Plan 63 year old male with below past medical history hospitalized for T10-S1 laminectomy/fusion, admitted to for 3 hours daily rehabilitation, strengthening, prior to discharge home. * Debility - PT/OT. * Pain - Tylenol 1000mg q8, Oxycontin 10mg bid, Oxycodone 5-10mg q6 prn. * Bowel - Miralax 17gm daily, senna/colace 2 tablets bid, Dulcolax 10mg pr x1 prn, MOM 30mL po x 1 prn. * DVT prophylaxis - Heparin 5000 units sc q8. * Low back pain s/p surgery - order MRI TLS spine. * COPD - Albuterol 2 puffs q6 prn. * Hyperlipidemia - Atorvastatin 10mg qhs. * Calcium deficiency - Calcium D 1 tablet daily. * Nutrition - Ensure Plus 120mL po tidcm, MVI 1 tablet daily. * Neuropathic pain - Add Gabapentin 100mg tid. * Hypothyroidism - Levothyroxine 137mcg daily. * Hypertension - Nifedipine 30mg daily, Lisinopril 20mg daily. * GERD - Pantoprazole 40mg daily, Mylanta II 15ML Q6 prn. * Insomnia - Melatonin 3mg qhs. * Muscle spasm - Schedule Robaxin 750mg 4x/day, monitor for side effects. * Depression - Mirtazapine 15mg qhs. * BPH - Tamsulosin 0.4mg daily.
[2024-02-19] MEDS: Gabapentin 100 MG Capsule PO ×3 (09:08→16:32)
[2024-02-19] MEDS: Methocarbamol 750 MG Tablet PO ×4 (09:08→20:50)
[2024-02-19] MEDS: oxyCODONE HCl Cr 10 MG Tablet PO ×2 (10:01→20:50)
[2024-02-19] MEDS: 0.9% Saline Lock 10 ML Syringe IV (15:22)
[2024-02-19 18:00] VITALS: BP 115/60; PULSE 80; RESP 16; TEMP 36.6; O2SAT 95
[2024-02-19 20:50] VITALS: PULSE 80; RESP 16; O2SAT 95
[2024-02-19] MEDS: Mirtazapine 15 MG Tablet PO (20:50)
[2024-02-19] MEDS: MELATONIN 3 MG TABLET PO (20:50)
[2024-02-19] MEDS: Atorvastatin Calcium 10 MG Tablet PO (20:50)
[2024-02-20] MEDS: oxyCODONE 5 MG Tablet PO ×2 (01:48→15:28)
--- NOTE | 2024-02-20 02:17 | NURSING ---
pt awake and called for prn pain medication, pt rating pain in the lt hip 10/10. polar care applied to the left hip and oxyir given as per order
[2024-02-20 06:00] VITALS: BP 151/61; PULSE 79; RESP 16; TEMP 37.2; O2SAT 98; BMI 27.5
[2024-02-20 07:09] VITALS: O2SAT 94
[2024-02-20] MEDS: Heparin Injection (Vial) 5,000 UNIT/ML VIAL 5000 UNIT SC ×3 (07:09→22:18)
[2024-02-20] MEDS: Levothyroxine 137 MCG Tablet PO (07:09)
[2024-02-20] MEDS: Gabapentin 100 MG Capsule PO ×3 (09:41→17:24)
[2024-02-20] MEDS: Calcium Carb/Vitamin D 1 TABLET Tablet PO (09:41)
[2024-02-20] MEDS: oxyCODONE HCl Cr 10 MG Tablet PO ×2 (09:41→22:18)
[2024-02-20] MEDS: Lisinopril 20 MG Tablet PO (09:41)
[2024-02-20] MEDS: NIFEdipine 30 MG Tablet PO (09:41)
[2024-02-20] MEDS: Senna/Docusate Sodium 1 Tablet 2 TABLET PO ×2 (09:41→22:19)
[2024-02-20] MEDS: Multivitamins,Therapeutic Tablet 1 TABLET PO (09:41)
[2024-02-20] MEDS: Tamsulosin HCl 0.4 MG Capsule PO (09:41)
[2024-02-20] MEDS: Ensure Plus High Protein 120 ML LIQUID PO ×3 (09:41→17:26)
[2024-02-20] MEDS: Polyethylene Glycol 3350 17 GM PACKET PO (09:41)
[2024-02-20] MEDS: Pantoprazole Sodium 40 MG Tablet PO (09:41)
[2024-02-20] MEDS: Methocarbamol 750 MG Tablet PO ×4 (09:41→22:18)
[2024-02-20 18:00] VITALS: BP 93/43; PULSE 86; RESP 17; TEMP 37; O2SAT 97
[2024-02-20] MEDS: Mirtazapine 15 MG Tablet PO (22:18)
[2024-02-20] MEDS: Atorvastatin Calcium 10 MG Tablet PO (22:18)
[2024-02-20] MEDS: MELATONIN 3 MG TABLET PO (22:18)
[2024-02-21] MEDS: Heparin Injection (Vial) 5,000 UNIT/ML VIAL 5000 UNIT SC ×3 (05:26→23:08)
[2024-02-21] MEDS: Levothyroxine 137 MCG Tablet PO (05:26)
[2024-02-21] MEDS: oxyCODONE 5 MG Tablet PO ×2 (05:26→20:22)
[2024-02-21 05:31] VITALS: BP 132/62; PULSE 73; RESP 18; TEMP 37.2; O2SAT 98
[2024-02-21] MEDS: Senna/Docusate Sodium 1 Tablet 2 TABLET PO (08:23)
[2024-02-21] MEDS: Lisinopril 20 MG Tablet PO (08:23)
[2024-02-21] MEDS: Methocarbamol 750 MG Tablet PO ×4 (08:24→23:08)
[2024-02-21] MEDS: NIFEdipine 30 MG Tablet PO (08:24)
[2024-02-21] MEDS: Pantoprazole Sodium 40 MG Tablet PO (08:24)
[2024-02-21] MEDS: Tamsulosin HCl 0.4 MG Capsule PO (08:24)
[2024-02-21] MEDS: Calcium Carb/Vitamin D 1 TABLET Tablet PO (08:24)
[2024-02-21] MEDS: Polyethylene Glycol 3350 17 GM PACKET PO (08:24)
[2024-02-21] MEDS: Multivitamins,Therapeutic Tablet 1 TABLET PO (08:25)
[2024-02-21] MEDS: Ensure Plus High Protein 120 ML LIQUID PO ×3 (08:27→16:41)
[2024-02-21] MEDS: Gabapentin 100 MG Capsule PO ×3 (08:27→16:41)
[2024-02-21] MEDS: oxyCODONE HCl Cr 10 MG Tablet PO ×2 (09:19→23:09)
[2024-02-21 17:33] VITALS: BP 119/54; PULSE 81; RESP 16; TEMP 36.9; O2SAT 100
[2024-02-21] MEDS: Mirtazapine 15 MG Tablet PO (23:09)
[2024-02-21] MEDS: Atorvastatin Calcium 10 MG Tablet PO (23:09)
[2024-02-22 05:11] VITALS: BP 142/64; PULSE 81; RESP 17; TEMP 37.1; O2SAT 96
[2024-02-22] MEDS: Heparin Injection (Vial) 5,000 UNIT/ML VIAL 5000 UNIT SC ×3 (05:15→21:59)
[2024-02-22] MEDS: Levothyroxine 137 MCG Tablet PO (05:16)
[2024-02-22] MEDS: Tamsulosin HCl 0.4 MG Capsule PO (08:14)
[2024-02-22] MEDS: Pantoprazole Sodium 40 MG Tablet PO (08:14)
[2024-02-22] MEDS: Gabapentin 100 MG Capsule PO ×3 (08:15→18:12)
[2024-02-22] MEDS: Lisinopril 20 MG Tablet PO (08:15)
[2024-02-22] MEDS: Methocarbamol 750 MG Tablet PO ×4 (08:15→21:57)
[2024-02-22] MEDS: Calcium Carb/Vitamin D 1 TABLET Tablet PO (08:15)
[2024-02-22] MEDS: Multivitamins,Therapeutic Tablet 1 TABLET PO (08:15)
[2024-02-22] MEDS: NIFEdipine 30 MG Tablet PO (08:15)
[2024-02-22] MEDS: Ensure Plus High Protein 120 ML LIQUID PO ×3 (08:17→18:13)
[2024-02-22] MEDS: oxyCODONE HCl Cr 10 MG Tablet PO ×2 (09:30→21:58)
[2024-02-22] MEDS: oxyCODONE 5 MG Tablet PO (13:38)
[2024-02-22 18:00] VITALS: BP 99/50; PULSE 77; RESP 17; TEMP 36.7; O2SAT 96
[2024-02-22] MEDS: Mirtazapine 15 MG Tablet PO (21:57)
[2024-02-22] MEDS: Atorvastatin Calcium 10 MG Tablet PO (21:57)
[2024-02-23 06:19] VITALS: BP 117/48; PULSE 67; RESP 18; TEMP 36.9; O2SAT 98
[2024-02-23] MEDS: Levothyroxine 137 MCG Tablet PO (06:20)
[2024-02-23] MEDS: Heparin Injection (Vial) 5,000 UNIT/ML VIAL 5000 UNIT SC ×3 (06:22→22:10)
[2024-02-23] MEDS: Ensure Plus High Protein 120 ML LIQUID PO ×3 (08:33→17:16)
[2024-02-23] MEDS: NIFEdipine 30 MG Tablet PO (08:34)
[2024-02-23] MEDS: Gabapentin 100 MG Capsule PO ×3 (08:34→17:16)
[2024-02-23] MEDS: Calcium Carb/Vitamin D 1 TABLET Tablet PO (08:34)
[2024-02-23] MEDS: Pantoprazole Sodium 40 MG Tablet PO (08:34)
[2024-02-23] MEDS: Tamsulosin HCl 0.4 MG Capsule PO (08:34)
[2024-02-23] MEDS: Multivitamins,Therapeutic Tablet 1 TABLET PO (08:34)
[2024-02-23] MEDS: Methocarbamol 750 MG Tablet PO ×4 (08:34→22:10)
[2024-02-23] MEDS: Lisinopril 20 MG Tablet PO (08:34)
--- NOTE | 2024-02-23 09:06 | CASEMGMT ---
Addendum entered by Rosibel Larios 02/23/24 12:38: Received call from SO that they would like pt to transfer to [facility]. If [facility] cannot accept, pt will DC home. Pt is not interested in any other [facility] SNF. SW agreed to send referral to determine acceptance. Will keep SO/pt updated. Referral sent to [facility] via [employer]. Original Note: Social Work IDT met with patient and SO via conference call for Team meeting. Discussed patient's progress in PT/OT/SN. Educated to [facility] [employer] insurance with [employer] 02/23 and continued stay is not guaranteed with each review. Discussed DC plan as pt is CGA, modA for some ADL tasks - howard was removed today. Surgeon is adamant about seeing pt in the office to remove ramos and pt cannot have an CATHY for appt. Currently, the appt is scheduled for 02/24. Pt/SO are upset with this news and wish for pt to remain in [facility] for at least another week as pt is progressing well. Pt/SO stated they will call the surgeon's office to voice their opinion. SW explained pt would not be able to return to [facility] after appt without a new precert and the pt went to P2P review to admit initially, thus high unlikelihood for approval to return. SW educated to the options of home vs SNF. SO stated she cannot care for pt at home with working full-time. SW educated to SNF option, precert would need approved to admit to SNF, and that would be the day prior to the appt or possible the day of the appt, as the SNF can accommodate appts. Pt/SO expressed understanding and will discuss options, then notify this worker. SW did provide pt with printed list of SNF providers in [facility] including quality and resource data via [employer]. SW will continue to follow. Rosibel Larios MSW SILO OPERATOR
[2024-02-23] MEDS: oxyCODONE HCl Cr 10 MG Tablet PO ×2 (09:19→22:10)
--- NOTE | 2024-02-23 11:43 | PN.REHAB_ITS ---
Subjective Subjective Patient seen, examined. His pain is improved, his muscle spasms are improved. He is progressing with therapy. His surgeon would like to see patient for staple/suture removal, but due to nature of IRU, patient unable to leave facility to go to doctor's appointment. Patient and SO will discuss his options and let team know. Remove howard today, and start voiding trials. Objective Data Objective Data Vital Signs: Vital Signs Temp Pulse Resp BP Pulse Ox O2 Del Method O2 Flow Rate 98.4 F 67 18 117/48 L 98 Room Air 2 02/23/24 06:19 02/23/24 06:19 02/23/24 06:19 02/23/24 06:19 02/23/24 06:19 02/23/24 10:00 02/21/24 05:31 Oxygen Flow Rate (L/min) 2 Oxygen Delivery Method Room Air Weight: 87 kg Body Mass Index (BMI) 27.5 Intake & Output: Intake and Output for Last 24 Hours 02/21/24 02/22/24 02/23/24 23:59 23:59 23:59 Intake Total 1370 / 1370 1435 / 1435 240 / 240 Output Total 3600 / 4550 3400 / 3400 450 / 450 Balance -2230 / -3180 -1965 / -1965 -210 / -210 Lab / Micro Data 02/18/24 06:06 02/18/24 06:06 Micro: Microbiology 02/13/24 18:55 Stool Stool Occult Blood (TSERING) - Final Occult Blood Positive Social Homelessness:: Sheltered Indicators for Scoring Admitted with or Primary Diagnosis of CVA/Stroke: No Hx of CVA/Stroke: No Physical Exam Const alert General Appearance: cooperative HEENT normocephalic Eyes PERRL and EOMs intact bilaterally Neck supple, no JVD and no carotid bruits Resp normal respiratory effort, normal air movement and clear to auscultation bilaterally Cardio regular rate and regular rhythm GI normal to inspection, nondistended, normoactive bowel sounds, non-tender and non-distended Extremity normal capillary refill General Extremity: Negative for edema Skin no rashes or lesions noted General Skin Exam: no breakdown Neuro Neuro Narrative: Left lower extremity weakness. Psych affect normal Appearance: appropriate Assessment & Plan Assessment/Plan (1) Debility: (2) Low back pain: (3) Status post lumbar laminectomy: (4) COPD (chronic obstructive pulmonary disease): (5) Hyperlipidemia: (6) Hypertension: (7) Hypercholesterolemia with hypertriglyceridemia: (8) Hypothyroidism: (9) BPH (benign prostatic hyperplasia): (10) Muscle spasm: PLAN: Plan 63 year old male with below past medical history hospitalized for T10-S1 laminectomy/fusion, admitted to for 3 hours daily rehabilitation, strengthening, prior to discharge home. * Debility - PT/OT. * Pain - Tylenol 1000mg q8, Oxycontin 10mg bid, Oxycodone 5-10mg q6 prn. * Bowel - Miralax 17gm daily, senna/colace 2 tablets bid, Dulcolax 10mg pr x1 prn, MOM 30mL po x 1 prn. * DVT prophylaxis - Heparin 5000 units sc q8. * Low back pain s/p surgery - patient declined MRI. * COPD - Albuterol 2 puffs q6 prn. * Hyperlipidemia - Atorvastatin 10mg qhs. * Calcium deficiency - Calcium D 1 tablet daily. * Nutrition - Ensure Plus 120mL po tidcm, MVI 1 tablet daily. * Neuropathic pain - Gabapentin 100mg tid. * Hypothyroidism - Levothyroxine 137mcg daily. * Hypertension - Nifedipine 30mg daily, Lisinopril 20mg daily. * GERD - Pantoprazole 40mg daily, Mylanta II 15ML Q6 prn. * Insomnia - Melatonin 3mg qhs. * Muscle spasm - Schedule Robaxin 750mg 4x/day, spasms improved. * Depression - Mirtazapine 15mg qhs. * BPH/Urinary retention - Tamsulosin 0.4mg daily, remove howard catheter, start voiding trials.
[2024-02-23 13:35] VITALS: O2SAT 94
[2024-02-23] MEDS: oxyCODONE 5 MG Tablet PO ×2 (14:48→23:53)
[2024-02-23 17:26] VITALS: BP 127/62; PULSE 83; RESP 16; TEMP 37.1; O2SAT 99
[2024-02-23] MEDS: Mirtazapine 15 MG Tablet PO (22:10)
[2024-02-23] MEDS: Senna/Docusate Sodium 1 Tablet 2 TABLET PO (22:10)
[2024-02-23] MEDS: Atorvastatin Calcium 10 MG Tablet PO (22:10)
[2024-02-24 06:00] VITALS: BP 114/41; PULSE 68; RESP 16; TEMP 37.2; O2SAT 96
[2024-02-24] MEDS: Heparin Injection (Vial) 5,000 UNIT/ML VIAL 5000 UNIT SC (06:02)
[2024-02-24] MEDS: Levothyroxine 137 MCG Tablet PO (06:04)
[2024-02-24] MEDS: oxyCODONE 5 MG Tablet PO ×2 (06:04→15:10)
--- NOTE | 2024-02-24 08:17 | PN_ITS ---
Subjective Subjective Afebrile VSS - Maintaining appropriate oxygen saturation on RA Oral intake - FOOD good FLUIDS fair to good Discussed with nursing - no problems that need addressed Reviewed the THERAPY notes Medication list reviewed. Will tells me that he is sleeping well and his pain is adequately controlled. He denies lightheadedness, chest pain, palpitations, shortness of breath, cough, abdominal pain, diarrhea/constipation, nausea/vomiting, dysuria and calf tenderness. All lab from this morning was personally reviewed. White blood cell count is normal at 5.5. Differential is unremarkable. Hemoglobin is 9.0, up from 8.5 on 02/18/2024. Platelet count is 600,000. Objective Data Objective Data Vital Signs: Vital Signs Temp Pulse Resp BP Pulse Ox O2 Del Method O2 Flow Rate 98.9 F 68 16 114/41 L 96 Room Air 2 02/24/24 06:00 02/24/24 06:00 02/24/24 06:00 02/24/24 06:00 02/24/24 06:00 02/24/24 06:00 02/21/24 05:31 Oxygen Flow Rate (L/min) 2 Oxygen Delivery Method Room Air Weight: 191 lb 12.835 oz Body Mass Index (BMI) 27.5 Intake & Output: Intake and Output for Last 24 Hours 02/22/24 02/23/24 02/24/24 23:59 23:59 23:59 Intake Total 1435 / 1435 1350 / 1850 700 / 700 Output Total 3400 / 3400 1560 / 1760 800 / 800 Balance -1965 / -1965 -210 / 90 -100 / -100 Lab / Micro Data 02/24/24 08:51 02/24/24 08:51 Micro: Microbiology 02/13/24 18:55 Stool Stool Occult Blood (TSERING) - Final Occult Blood Positive Social Homelessness:: Sheltered Physical Exam Const alert General Appearance: cooperative Resp normal respiratory effort, normal air movement and clear to auscultation bilaterally Cardio regular rate and regular rhythm GI normal to inspection, nondistended, normoactive bowel sounds, non-tender and non-distended Extremity normal capillary refill General Extremity: Negative for edema Skin no rashes or lesions noted Skin Narrative: The incisions are intact with no dehiscence. There is no significant carissa- incisional erythema and no increased warmth to touch. No purulent discharge from the incisions. D/W surgery. OK to DC the ramos and leave open to air General Skin Exam: no breakdown Assessment & Plan Assessment/Plan (1) Physical debility: (2) Spinal stenosis of lumbar region: QUALIFIERS: Neurogenic claudication status: with neurogenic claudication Qualified Code(s): M48.062 - Spinal stenosis, lumbar region with neurogenic claudication (3) History of lumbar laminectomy for spinal cord decompression: (4) S/P lumbar fusion: (5) Acute blood loss anemia: (6) Urine retention: (7) Alcohol use: (8) Heme positive stool: (9) Acute renal failure: QUALIFIERS: Acute renal failure type: unspecified Qualified Code(s): N17.9 - Acute kidney failure, unspecified PLAN: 'Due to dehydration? We really don't have a baseline.......renal failure could be chronic. (10) Hyponatremia: PLAN: Fractional excretion of sodium is consistent with prerenal azotemia. Sodium improved from 126-131 overnight after only 1 L of normal saline. He is to receive a second liter today. Hyponatremia is persistent. Pantoprazole and lisinopril can contribute to hyponatremia. (11) Dystonia: PLAN: I suspect this is due to Lyrica. Will discontinue. Dystonia resolved with discontinuation of Lyrica and gabapentin. Gabapentin was restarted at 100 mg 3 times daily and he tolerates this without any adverse side effects. (12) Thrombocytosis: PLAN: Plan 1. Continue therapy 2. Hold Protonix and lisinopril and recheck the BMP in a few days. If the blood pressure increases significantly will increase Procardia XL to 60 mg daily. 3. Needs to get established with a primary care physician at discharge. May have chronic renal failure......... can be followed/worked up as an outpatient. 4. Check another Hemoccult stool since he has been on a PPI to see if it is still positive. If so recommend outpatient follow-up with gastroenterology for endoscopy. 5. Remove ramos today and allow to be open to air. Charges/Coding Visit Charges Inpatient E&M: 28908 Subs Hosp L1
--- NOTE | 2024-02-24 08:22 | CASEMGMT ---
Addendum entered by Rosibel Larios 02/24/24 08:35: [facility] can accept and will submit precert, when/if needed. SW updated SO. Original Note: Social Work SW received update from nurse that the surgeon agreed to a picture of the pt's ramos and gave orders for Dr to remove ramos on RU; appt canceled for 02/24. Nurse updated pt and pt appreciative. SW updated [facility] but still requested referral outcome if insurance does not approve continued stay and pt still needs SNF. Will continue to follow. Rosibel SILVAW
--- NOTE | 2024-02-24 08:25 | NURSING ---
Dr Millan talked with Dr Biggs. Okay to remove ramos and sutures today. Pt to f/u after dc form rehab.
[2024-02-24 09:00] LABS: Absolute Lymphocyte Count 0.93 X10^3/uL (0.83-4.51); Absolute Neutrophil Count 3.7 X10^3/uL (2.0-7.7); Basophil# 0.06 X10^3/uL; Basophil% 1.1 % (0-1); Eosinophil# 0.15 X10^3/uL; Eosinophils% 2.7 % (0-5); Hematocrit 28.1 % (40-54); Lymphocyte # 0.93 X10^3/ul (0.83-4.51); Lymphocyte % 16.9 % (19-41); Mean Corpuscular Hgb 32.4 pg (27.0-32.0); Mean Corpuscular Volume 101.1 fL (80-94); Mean Platelet Vol. 8.6 fl (6.2-12.0); Monocyte# 0.63 X10^3/uL; Monocyte% 11.5 % (0-10); NRBC Flagged by Analyzer 0 % (0-5); Neutrophil # 3.68 X10^3/uL (2.7-7.7); Neutrophil % 67.1 % (47-70); Platelet Count 600 K/mm3 (150-450); RBC Distribution Width CV 13.6 % (11.6-14.6); RBC Distribution Width SD 50.3 fl (35.1-43.9); Red Blood Count 2.78 M/mm3 (4.6-6.2); White Blood Count 5.5 K/mm3 (4.4-11.0)
[2024-02-24 09:21] LABS: ALB/GLOB Ratio 0.7 RATIO (0.9-2.4); AST(SGOT) 31 U/L (15-37); Alanine Aminotransfer ALT/SGPT 56 U/L (16-61); Albumin, Serum 2.8 g/dL (3.2-5.0); Alkaline Phosphatase 215 U/L (45-117); Anion Gap 8 (5-15); BUN 18 mg/dL (7-18); Calcium,Total 9.2 mg/dL (8.5-10.1); Chloride 97 mmol/L (98-107); EST Glomerular Filtration Rate 50 mL/min (>60); Est Glom Filt Rate - Afr Amer 60 mL/min (>60); Estimated Creatinine Clearance 50.69 ml/min; Globulin 4.1 g/dL (2.2-4.2); Glucose 88 mg/dL (74-106); Potassium 4.6 mmol/L (3.5-5.1); Protein, Total 6.9 g/dL (6.4-8.2); Sodium Level 131 mmol/L (136-145)
[2024-02-24] MEDS: Ensure Plus High Protein 120 ML LIQUID PO ×3 (10:22→17:46)
[2024-02-24] MEDS: Calcium Carb/Vitamin D 1 TABLET Tablet PO (10:24)
[2024-02-24] MEDS: Tamsulosin HCl 0.4 MG Capsule PO (10:24)
[2024-02-24] MEDS: Pantoprazole Sodium 40 MG Tablet PO (10:24)
[2024-02-24] MEDS: NIFEdipine 30 MG Tablet PO (10:24)
[2024-02-24] MEDS: Gabapentin 100 MG Capsule PO ×3 (10:24→17:46)
[2024-02-24] MEDS: Polyethylene Glycol 3350 17 GM PACKET PO (10:24)
[2024-02-24] MEDS: Senna/Docusate Sodium 1 Tablet 2 TABLET PO (10:24)
[2024-02-24] MEDS: Lisinopril 20 MG Tablet PO (10:24)
[2024-02-24] MEDS: Multivitamins,Therapeutic Tablet 1 TABLET PO (10:24)
[2024-02-24] MEDS: Methocarbamol 750 MG Tablet PO ×4 (10:24→22:03)
[2024-02-24] MEDS: oxyCODONE HCl Cr 10 MG Tablet PO ×2 (10:25→22:03)
--- NOTE | 2024-02-24 15:36 | NURSING ---
total of 58 stables removed from back and lt flank. No s/s infection noted. no drainage noted. incisions well approximated. left RAISED PRINTER. pt tolerated well
[2024-02-24 16:10] LABS: Ferritin 506 ng/mL (26-388); Iron 25 ug/dL (65-175); Iron Binding Capacity,Total 261 ug/dL (250-450); PERCENT IRON SATURATION 9.6 % (15.0-55.0)
[2024-02-24 18:00] VITALS: BP 118/49; PULSE 76; RESP 16; TEMP 37.2; O2SAT 97
[2024-02-24] MEDS: Mirtazapine 15 MG Tablet PO (22:03)
[2024-02-24] MEDS: Atorvastatin Calcium 10 MG Tablet PO (22:03)
[2024-02-25 06:00] VITALS: BP 108/35; PULSE 72; RESP 17; TEMP 36.6; O2SAT 98
[2024-02-25] MEDS: Levothyroxine 137 MCG Tablet PO (06:01)
[2024-02-25] MEDS: Enoxaparin 40 MG/0.4 ML Syringe SC (06:01)
[2024-02-25 08:10] VITALS: O2SAT 93
[2024-02-25] MEDS: Multivitamins,Therapeutic Tablet 1 TABLET PO (09:28)
[2024-02-25] MEDS: oxyCODONE HCl Cr 10 MG Tablet PO (09:28)
[2024-02-25] MEDS: NIFEdipine 30 MG Tablet PO (09:28)
[2024-02-25] MEDS: Tamsulosin HCl 0.4 MG Capsule PO (09:28)
[2024-02-25] MEDS: Calcium Carb/Vitamin D 1 TABLET Tablet PO (09:28)
[2024-02-25] MEDS: Methocarbamol 750 MG Tablet PO ×3 (09:28→17:07)
[2024-02-25] MEDS: Gabapentin 100 MG Capsule PO ×3 (09:28→17:07)
[2024-02-25] MEDS: Senna/Docusate Sodium 1 Tablet 2 TABLET PO (09:28)
--- NOTE | 2024-02-25 10:14 | PCM.DC ---
Discharge Instructions Diet Discharge Diet: - (Low-fat) DC O2, CPAP, BIPAP needs Home O2 Discharge instructions: No Dressing / Incision Discharge Activity: May Not Drive, May Shower (No tub bath until okayed by surgeon) and Use Walker Weight Bearing Status: Full weight bearing Keep extremity elevated above heart level: Legs Dressing / Incision Call your doctor if your incision/area has: Continuous Slow Oozing, Sudden Increased Bleeding, Increased Pain/ Swelling, Increased Redness and Foul Smelling Discharge Call your doctor if you observe: Fever of 101 or Higher, Inability to urinate, Inability to have a bowel movement, Shortness of breath, Dizziness, Fainting spells, Chest pain, Increased palpitations (irregular heartbeat) and Uncontrolled pain Suture Line Care: Avoid Pulling/Pushing, Avoid Pinching/Bending and - (No dressing is needed. Leave incision open to air.) Cleanse incision/area with: Soap & Water Follow Up Care Please Follow Up With: PCP When: Appts have been made for you and are listed later in this document. Test Results: Test results from this visit will be discussed in further detail at your follow-up appointment, if applicable. Pending Tests Upon Discharge: none Discharge Plan Admission Admit Date/Time: 02/12/24 15:15 Primary Reason for Your Visit: Debility following lumbar laminectomy and fusion Attending Provider: Gladys Millan Primary Care Provider: Care Physician,No Primary Consulting Providers: Jose David Watters Instructions Patient Instructions: Caring for Your Incision, ED Opioid Withdrawal Additional Instructions / Restrictions: 1. Keep moving. Do NOT sit for longer than 1 hour without getting up and taking a walk in the house. This helps prevent stiffness and helps with pain control. Ambulation also helps to prevent blood clots in the legs. 2. Have Milagros check the incisions daily. If there is increasing redness around the incision, any drainage, any opening of the incision call your PCP or Dr. Phan. 3. You are still taking a long acting narcotic (Oxycontin) twice daily and Oxycodone 5 mg as needed for breakthrough pain. You are also on a muscle relaxer, methocarbamol (also called Robaxin) 4 times daily and gabapentin 100 mg 3 times daily. You are going to need follow-up with pain management to help wean you off these medications. We have scheduled an appt for you to see Dr. Aminta Watters here at the hospital within the next week. Because I am not your regular physician I can only write a prescription for 1 weeks worth of the Oxycontin and Oxycodone. Narcotics are necessary to control pain after surgery and allow you to do your therapy. Without pain control you would not be able to progress in therapy. Your body is dependent on narcotics now and if you suddenly stop them you will go into narcotic withdrawal. I am giving you a handout on the symptoms of narcotic withdrawal. Please read this handout and if you have any questions do not hesitate to ask. 4. The depression seems to be under good control. You are taking a antidepressant called Mirtazapine (also called Remeron). I generally recommend you continue taking the antidepressant for at least 3 months post discharge from rehab. It will be 6-12 months before you feel truly back to your baseline and untreated depression affects how you do with therapy. Do NOT stop this medicine cold turkey.......discuss with your PCP. You can have some withdrawal symptoms if you suddenly stop it cold turkey. 5. Narcotics and muscle relaxers can cause constipation. You are taking stool softeners and you will need to continue taking stool softeners as long as you are on narcotics. If you do not have a BM for 3 days you will likely need to take a laxative. Milk of magnesia and Dulcolax tablets are to laxatives you can purchase [id number] at any pharmacy. 6. Your sodium has been low in your blood. Normal is 135-145. Your sodium 1 day prior to discharge was 131 and this has been stable. Two od the medications you have been taking can cause a low sodium. Lisinopril and Pantoprazole ( you were taking this because you had blood in the stool) can both decrease the sodium. The sodium was low even prior to starting the pantoprazole so I do not think this is causing the problem. Remeron (mirtazapine) he can also cause low sodium but it does this and less than 1% of patients and that the sodium was low even prior to mirtazapine. We discontinued lisinopril and your blood pressure has been well-controlled. Your primary care doctor will want to follow-up on this. 7. Your kidney function is not normal. You were retaining urine at admission to rehab and you are now taking a medication called Flomax (also called tamsulosin) to help the urine flow better. We were able to get that he Real catheter out and you have been urinating on your own but you still occasionally retain some urine. Your primary care physician will want to follow-up on this. Narcotics can cause urine retention. Make sure to maintain good fluid intake. Try an empty your bladder every 2-3 hours during the day. Sometimes bearing down while urinating will help empty the bladder better. Your primary care doctor will want to recheck the sodium and kidney function within the next 7 to 10 days. 8. You had blood in your stool when you arrived on rehab. Stress can lead to ulcerations in your stomach and you were started on a medication called pantoprazole (also called Protonix) which treats ulcers. Since you have no nausea, no vomiting and no pain in your abdomen we have discontinued pantoprazole because of the low sodium. If you do have recurrent nausea/vomiting/decreased appetite/abdominal pain please discuss this with your primary care doctor. 9. You lost blood with the surgery and you were anemic at the time you arrived on rehab. You were transfused with 1 unit of packed red blood cells. I checked your iron studies prior to discharge from rehab and you are iron deficient. The bone marrow needs iron to make new red blood cells. I have not started you on an iron supplement because you told me that at one time you were going to have your blood taken every 2 weeks because you had too much blood. You will need to discuss this with your primary care doctor. I do not know the reason you were having blood taken every 2 weeks. Your PCP likely has records from the oncologist you saw about why this was necessary. Your blood count is stable but, you are still anemic (lower than normal red blood cell count). You may need to go see the roll weigher/oncologist again to work this out. 10. I have given you a lot of information. If you have any questions after leaving acute rehab please do not hesitate to call me. 11. The patient requires a hospital bed due to needing frequent changes in position, to alleviate pain that is not feasible in an ordinary bed. Related to Dx of lumbar canal stenosis radiculopathy and recent history of lumbar laminectomy and fusion.. OFFICE: [phone] CELL: [phone] NURSES STATION ON REHAB: [phone] Good luck with your recovery Will. Please do not ignore the things I discussed above. You need to have regular follow up with your PCP to stay on top of your health care. Preventative health care becomes very important as you age. Discharge Orders/Prescriptions Prescriptions: New methocarbamol 750 mg Tablet 750 mg PO 4X/DAY Qty: 120 0RF mirtazapine 15 mg Tablet 15 mg PO QHS Qty: 30 0RF gabapentin 100 mg Capsule 100 mg PO TIDCM Qty: 90 0RF oxycodone 5 mg Tablet 5 - 10 mg PO Q6H PRN PRN (Reason: pain 4-10) 7 Days Qty: 40 0RF Rx Instructions: 1-2 tabs every 6 hours as needed for breakthrough pain. oxycodone [OxyContin] 10 mg Tablet,Oral Only,Ext.Rel.12 Hr 10 mg PO BID 2 Days Qty: 4 0RF multivitamin Tablet 1 tab PO BREAKFAST Qty: 30 0RF sennosides-docusate sodium [Stimulant Laxative Plus] 8.6-50 mg Tablet 2 tab PO BID Qty: 120 0RF polyethylene glycol 3350 17 gram/dose powder 17 g PO DAILY Qty: 510 0RF Continued albuterol sulfate 90 mcg/actuation HFA aerosol inhaler 2 puff inhalation Q6H PRN PRN (Reason: wheezing/sob) atorvastatin 10 mg tablet 10 mg PO QHS calcium carbonate-vitamin D3 [Calcium 500 + D] 500 mg-10 mcg (400 unit) tablet 1 tab PO DAILY levothyroxine 137 mcg tablet 137 mcg PO DAILY nifedipine 30 mg tablet extended release 30 mg PO DAILY tamsulosin [Flomax] 0.4 mg capsule 0.4 mg PO DAILY Qty: 30 0RF Changed acetaminophen 500 mg tablet 1,000 mg PO Q8 PRN (Reason: pain) Qty: 1 0RF Discontinued Cerovite Jr 18 mg iron- 10 mcg tablet,chewable 1 tab PO DAILY lisinopril 20 mg tablet 20 mg PO DAILY methocarbamol 750 mg tablet 750 mg PO TID oxycodone 5 mg tablet 5 mg PO Q6H PRN (Reason: pain) pregabalin [Lyrica] 50 mg capsule 50 mg PO BID No Action melatonin 1 mg tablet 2 mg PO QHS PRN (Reason: sleep) Referrals / Follow Up: Vini Phan [Other] - 03/24/24 11:00 am Mert Pérez MD [Non-Staff] - 03/03/24 2:00 pm Jose David Watters MD [Med Staff - Active Staff] - 02/26/24 3:00 pm Disposition Disposition (needs filled in before D/C Order can be placed): Home Health Service
--- NOTE | 2024-02-25 11:33 | PCM.DC.SUM ---
Providers Date of Admission: 02/12/24 Date of Discharge: 02/25/24 Primary Care Physician: Ana Primary Care Phys Consultations 02/19/24 09:41 Consult: Pain Management Routine Consulting Provider: Jose David Watters Reason for Consult: Back pain EMERGENT Consult: No MD Notified: Yes Date Notified: 02/19/24 Time Notified: 09:41 Method of Notification: Text Reason For Visit: LUMBAR LAMINECTOMY Diagnosis Discharge Diagnosis (1) Physical debility: Status: Acute Code(s): R53.81 - Other malaise (2) Spinal stenosis of lumbar region: Status: Chronic Code(s): M48.061 - Spinal stenosis, lumbar region without neurogenic claudication Qualifiers: Neurogenic claudication status: with neurogenic claudication Qualified Code(s): M48.062 - Spinal stenosis, lumbar region with neurogenic claudication (3) History of lumbar laminectomy for spinal cord decompression: Status: Acute Code(s): Z98.890 - Other specified postprocedural states Plan: T10-S1 laminectomy and fusion at [facility] on 02/05/[address] Miguel Phan. (4) S/P lumbar fusion: Status: Acute Code(s): Z98.1 - Arthrodesis status (5) Acute blood loss anemia: Status: Acute Code(s): D62 - Acute posthemorrhagic anemia Plan: He was transfused with 1 unit of packed red blood cells for hemoglobin of 7.3 with lightheadedness, increased shortness of breath and poor exercise tolerance. Hemoglobin is stable at 9 at the time of discharge from rehab. (6) Urine retention: Status: Resolved Code(s): R33.9 - Retention of urine, unspecified Plan: Still having occasional urine retention but less than 300 cc so a Real catheter was not reinserted. I suspect the urinary retention he has now is related to narcotics. With the institution of tamsulosin we were able to get the Real catheter out. (7) Alcohol use: Status: Chronic Code(s): F10.90 - Alcohol use, unspecified, uncomplicated (8) Heme positive stool: Status: Acute Code(s): R19.5 - Other fecal abnormalities Plan: Could this be chronic? Is this contributing to iron deficiency? May need endoscopy if stool is persistently heme +. (9) Acute renal failure: Status: Acute Code(s): N17.9 - Acute kidney failure, unspecified Qualifiers: Acute renal failure type: unspecified Qualified Code(s): N17.9 - Acute kidney failure, unspecified Plan: We do not have a baseline creat on this patient. It improves with hydration. Urine retention is now less than 300 cc. GFR at AL is 50 which is consistent with stage 3a CRF. Will follow up with his PCP for further work up if needed. (10) Hyponatremia: Status: Acute Code(s): E87.1 - Hypo-osmolality and hyponatremia Plan: Persistent mild hyponatremia. Lisinopril and Pantoprazole discontinued at AL because both can cause low sodium. Remeron can also cause low sodium but in less than 1% of patients taking this medication. Will need a follow-up BMP within the next 7 to 10 days postdischarge. (11) Dystonia: Status: Resolved Code(s): G24.9 - Dystonia, unspecified Plan: Resolved with discontinuation of Lyrica. At the time of discharge he is taking gabapentin 100 mg 3 times daily and tolerating this without any adverse side effects. (12) Thrombocytosis: Status: Acute Code(s): D75.839 - Thrombocytosis, unspecified Plan: Etiology? Due to iron deficiency? due to inflammation? due to hx of polycythemia vera? Plt count is 600,000 at AL. would consider reconnecting with the accounting machine mechanic/oncologist he has seen in the past. (13) BPH (benign prostatic hyperplasia): Status: Acute Code(s): N40.0 - Benign prostatic hyperplasia without lower urinary tract symptoms Qualifiers: Lower urinary tract symptom detail: urinary retention Lower urinary tract symptom presence: symptoms present Qualified Code(s): N40.1 - Benign prostatic hyperplasia with lower urinary tract symptoms; R33.8 - Other retention of urine (14) Muscle spasm: Status: Acute Code(s): M62.838 - Other muscle spasm (15) Low back pain: Status: Acute Code(s): M54.50 - Low back pain, unspecified Qualifiers: Back pain laterality: bilateral Chronicity: chronic Sciatica laterality: sciatica laterality unspecified Sciatica presence: with sciatica Qualified Code(s): M54.40 - Lumbago with sciatica, unspecified side; G89.29 - Other chronic pain (16) Iron deficiency: Status: Chronic Code(s): E61.1 - Iron deficiency Plan: Iron studies on 02/24/2024 showed a low serum iron at 25 with a TIBC of 261 and an iron saturation of only 9.6%. Ferritin was 506. He was not started on an iron supplement due to the history of polycythemia in the past. (17) History of polycythemia: Status: Inactive Code(s): Z86.2 - Personal history of diseases of the blood and blood-forming organs and certain disorders involving the immune mechanism Plan: Has seen hematology/oncology in the past and required frequent phlebotomy for polycythemia. He has not seen hematology/oncology for 8 years and has not been having phlebotomy. Unknown whether he has polycythemia vera. Thrombocytosis may be secondary to iron deficiency/inflammation but could also be related to polycythemia vera. Plan 1. Discharge home with home health care. 2. The patient requires a hospital bed due to needing frequent changes in position, to alleviate pain that is not feasible in an ordinary bed. Related to Dx of lumbar canal stenosis with radiculopathy and recent history of laminectomy and fusion of T10-S1. 3. Follow-up has been scheduled with Dr. Phan, Dr. Parkinson and Dr Watters (pain management). 4. Recommend follow up with heme/onc for iron deficiency with hx of polycythemia and for thrombocytosis. Medications at Discharge Home Medications albuterol sulfate 90 mcg/actuation aerosol inhaler 2 puff inhalation Q6H PRN PRN wheezing/sob 02/12/24 atorvastatin 10 mg tablet 10 mg PO QHS cholesterol 02/12/24 calcium 500 mg (as carbonate)-vitamin D3 10 mcg (400 unit) tablet (Calcium 500 + D) 1 tab PO DAILY supplement 02/12/24 levothyroxine 137 mcg tablet 137 mcg PO DAILY hypothyroidism 02/12/24 melatonin 1 mg tablet 2 mg PO QHS PRN sleep 02/12/24 nifedipine 30 mg tablet,extended release 30 mg PO DAILY blood pressure 02/12/24 acetaminophen 500 mg tablet 1,000 mg (2 x 500 mg) PO Q8 PRN pain #1 TAB 02/25/24 gabapentin 100 mg capsule 100 mg PO TIDCM #90 caps 02/25/24 methocarbamol 750 mg tablet 750 mg PO 4X/DAY #120 tabs 02/25/24 mirtazapine 15 mg tablet 15 mg PO QHS #30 tabs 02/25/24 multivitamin 1 tab PO BREAKFAST #30 tabs 02/25/24 oxycodone 10 mg tablet,crush resistant,extended release 12 hr (OxyContin) 10 mg PO BID 2 days #4 tabs 02/25/24 oxycodone 5 mg tablet 5 - 10 mg (1 - 2 x 5 mg) PO Q6H PRN PRN pain 4-10 7 days #40 tabs 02/25/24 polyethylene glycol 3350 17 gram/dose oral powder 17 g PO DAILY #510 grams 02/25/24 sennosides 8.6 mg-docusate sodium 50 mg tablet (Stimulant Laxative Plus) 2 tab PO BID #120 tabs 02/25/24 tamsulosin 0.4 mg capsule (Flomax) 0.4 mg PO DAILY urination #30 caps 02/25/24 Hospital Course Operations - (Laminectomy and fusion of T10-S1 on 02/05/2024 at [facility] by Dr. Miguel Phan.) Procedures Blood transfusion (Transfused 1 unit of packed red blood cells for symptomatic anemia with a hemoglobin of 7.3.) Summary of Care Provided Minutes Spent on Discharge: 43 Hospital Course: NE MARTINEZ, is a 63-year-old M with a past medical history of hypertension, hyperlipidemia, COPD, obstructive sleep apnea, remote tobacco dependence, polycythemia and hypothyroidism who underwent a T10-S1 laminectomy and fusion at [facility] on 02/05/[address] Miguel Phan. Postoperative complications included urine retention (Real inserted on 02/11/24 and he was started on Flomax), acute blood loss anemia.....hemoglobin on 02/11/2024 was 7.1), hyponatremia and elevated creatinine (he peaked at 2.3). He was transferred to the acute inpatient rehab unit at [facility] on 02/12/2024 for 3 hours of therapy daily to restore function/independence at or near his level prior to the surgery. Lab at admission showed a normal white blood cell count of 10.2 with an unremarkable differential. Hemoglobin was 7.3 and platelets were 402,000. Sodium was low at 131 and the BUN was 20 with a creatinine of 1.15. Phosphorus was low at 2.2 and supplementation was ordered. He complained of shortness of breath with exertion, poor exercise tolerance, lightheadedness with sitting and standing and he was transfused with 1 unit of packed red blood cells. Hemoglobin posttransfusion was 8.4 and at the time of discharge it is 9.0. Sodium has ranged from 126-132 while on rehab. Fractional excretion of sodium was consistent with prerenal azotemia and he was administered IV normal saline. Sodium increased from 126-132 with IV normal saline but it has remained mildly decreased. Urine outputs >>intake consistently despite good fluid intake......this may have been related to post obstructive diuresis. TSH was WNL. Hemoccult stool was positive at admission and he was started on pantoprazole. Creatinine on rehab has ranged from 1.15 at admission to 1.5 just prior to discharge. We do not know his baseline creatinine. Creatinine improved consistently with IV hydration. He was admonished at discharge to maintain good fluid intake. He had 2 postvoid residuals prior to discharge and they were both less than 300. 1 was 63 and the other was 249. I suspect the narcotics contribute to urine retention. Will c/o severe pain in the back with radiation into the left leg at admission. He additionally complained of tingling and weakness of the left leg. He was taking Lyrica 50 mg twice daily and oxycodone as needed at admission. He complained of not being able to sleep at night but was very drowsy during the day. The Lyrica was changed to 75 mg at at bedtime with Gabapentin 10 mg BID and he developed dystonia which resolved with discontinuation of Lyrica. Pain control was better with narcotics. He was started on Oxycontin 10 mg BID with Oxycodone 5-10 mg q 6H for breakthrough pain. His pain is well controlled with this regimen. He has been taking 5 mg once a day and 10 mg once a day for breakthrough pain for the few days prior to DC from rehab. He remains on OxyContin 10 mg p.o. twice daily. He has an appointment to follow-up with Dr. Jose David Watters from pain management on 02/26/2024 at 3 PM to manage the pain medications going forward. Will admitted to being quite depressed at admission to rehab. His appetite was poor and he was not sleeping well at night. He was disappointed that he still had so much pain and disability. His significant other felt that he had been depressed even prior to the surgery. He was started on Remeron 15 mg at and appetite improved, insomnia resolved and his outlook for the future improved. He denies feeling depressed at the time of discharge from rehab. Once the pain was controlled we will did well with therapy. On the date of discharge from rehab he ambulated 265 feet with a wheeled walker independently. He continues to use a soft knee brace on the left lower extremity. He is independent with eating and grooming. He needs minimal assistance with bathing and he is independent with upper body dressing and supervision/set up for lower body dressing. He is modified independent with toileting and toilet transfer and supervision/set up for tub/shower transfer. Appointments were made for Will to follow-up with Dr. Phan (surgeon), Dr. Pérez (PCP) and Dr. Jose David Watters from pain management. On the day prior to discharge all ramos were removed and the incisions are intact with no dehiscence, no purulent discharge, no significant carissa-incisional erythema and no significant swelling around the incision. He was discharged home on 02/25/2024 and will have home health care initially and then transition to outpatient therapy. A hospital bed is needed at discharge to alleviate pain with changes in head elevation that are not feasible in a regular bed. Prescriptions were faxed to [facility] in [place]. Physical Exam Const alert, oriented x3 and no apparent distress Constitutional Narrative: Sitting in the chair at the bedside and appears comfortable. General Appearance: cooperative HEENT head/scalp atraumatic HEENT Narrative: Mucous membranes are mildly dry. No evidence of thrush. He has some missing teeth. Eyes PERRL, EOMs intact bilaterally, conjunctivae normal and no scleral icterus Eyes Narrative: No discharge from the eyes. General Eye: normal appearance of both eyes Neck supple and no carotid bruits Resp normal respiratory effort, normal air movement and clear to auscultation bilaterally Effort and Inspection: able to speak in complete sentences Cardio regular rate, regular rhythm, S1 normal heart sound, S2 normal heart sound, no murmurs, no rub and no gallops Cardio Narrative: No ectopy GI normal to inspection, nondistended, normoactive bowel sounds, non-tender and non-distended GI Narrative: Having regular bowel movements. Extremity normal capillary refill General Extremity: Negative for edema Skin no rashes or lesions noted Skin Narrative: The incisions are intact with no dehiscence. There is no significant carissa-incisional erythema and no increased warmth to touch. No purulent discharge from the incisions. All ramos were removed on 02/24/2024. General Skin Exam: no breakdown Neuro oriented x3 and CN's II-XII intact bilaterally Psych thought process normal, cooperative, denies hallucinations, denies homicidal ideation and denies suicidal ideation Psych Narrative: Makes good eye contact with me when we are talking. He is not anxious and does not seem depressed. He is more engaged in conversation than he was at admission. Appearance: appropriate Attitude: calm and engaged Speech: normal speech Medical Records Data Homelessness:: Sheltered Weight / BMI Weight Weight: 191 lb 12.835 oz Body Mass Index (BMI) 27.5 ABG / Lab / Microbiology Data 02/24/24 08:51 02/24/24 08:51 Laboratory: Laboratory Results - last 24 hr 02/24/24 08:51: Iron 25 L, TIBC 261, Iron Saturation 9.6 L, Ferritin 506 H Microbiology: Microbiology 02/13/24 18:55 Stool Stool Occult Blood (TSERING) - Final Occult Blood Positive D/C Instructions Discharge Diet: - (Low-fat) Weight Bearing Status: Full weight bearing Keep extremity elevated above heart level: Legs Call your doctor if your incision/area has: Continuous Slow Oozing, Sudden Increased Bleeding, Increased Pain/ Swelling, Increased Redness and Foul Smelling Discharge Call your doctor if you observe: Fever of 101 or Higher, Inability to urinate, Inability to have a bowel movement, Shortness of breath, Dizziness, Fainting spells, Chest pain, Increased palpitations (irregular heartbeat) and Uncontrolled pain Suture Line Care: Avoid Pulling/Pushing, Avoid Pinching/Bending and - (No dressing is needed. Leave incision open to air.) Cleanse incision/area with: Soap & Water DC O2, CPAP, BIPAP Needs Home O2 Discharge instructions: No Pending Tests Upon Discharge: none Please Follow Up With: PCP When: Appts have been made for you and are listed later in this document. Meaningful Use Info Meaningful Use Meaningful Use Diagnoses (Choose all that apply): None applicable Ischemic Stroke Statin Dosing Therapy Reference: STATIN DOSE THERAPY REFERENCE: * Patients > 75 years receive moderate or high dose statin therapy. * Patients 75 years or YOUNGER should receive HIGH intensity statin dose unless contraindicated. You will be required to document reason for non-treatment if statin daily dose does not meet guidelines. HIGH DOSE STATIN THERAPY DAILY Atorvastatin > than or = to 40 mg Rosuvastatin > than or = to 20 mg Amlodipine + Atorvastatin > than or = to 2.5/40 mg Ezetimibe + Simvastatin 10/80 mg Simvastatin 80mg Discharge Plan Admission Admit Date/Time: 02/12/24 15:15 Primary Reason for Your Visit: Debility following lumbar laminectomy and fusion Attending Provider: Gladys Millan Primary Care Provider: Care Physician,No Primary Consulting Providers: Jose David Watters Instructions Patient Instructions: Caring for Your Incision, ED Opioid Withdrawal Additional Instructions / Restrictions: 1. Keep moving. Do NOT sit for longer than 1 hour without getting up and taking a walk in the house. This helps prevent stiffness and helps with pain control. Ambulation also helps to prevent blood clots in the legs. 2. Have Milagros check the incisions daily. If there is increasing redness around the incision, any drainage, any opening of the incision call your PCP or Dr. Phan. 3. You are still taking a long acting narcotic (Oxycontin) twice daily and Oxycodone 5 mg as needed for breakthrough pain. You are also on a muscle relaxer, methocarbamol (also called Robaxin) 4 times daily and gabapentin 100 mg 3 times daily. You are going to need follow-up with pain management to help wean you off these medications. We have scheduled an appt for you to see Dr. Aminta Watters here at the hospital within the next week. Because I am not your regular physician I can only write a prescription for 1 weeks worth of the Oxycontin and Oxycodone. Narcotics are necessary to control pain after surgery and allow you to do your therapy. Without pain control you would not be able to progress in therapy. Your body is dependent on narcotics now and if you suddenly stop them you will go into narcotic withdrawal. I am giving you a handout on the symptoms of narcotic withdrawal. Please read this handout and if you have any questions do not hesitate to ask. 4. The depression seems to be under good control. You are taking a antidepressant called Mirtazapine (also called Remeron). I generally recommend you continue taking the antidepressant for at least 3 months post discharge from rehab. It will be 6-12 months before you feel truly back to your baseline and untreated depression affects how you do with therapy. Do NOT stop this medicine cold turkey.......discuss with your PCP. You can have some withdrawal symptoms if you suddenly stop it cold turkey. 5. Narcotics and muscle relaxers can cause constipation. You are taking stool softeners and you will need to continue taking stool softeners as long as you are on narcotics. If you do not have a BM for 3 days you will likely need to take a laxative. Milk of magnesia and Dulcolax tablets are to laxatives you can purchase [id number] at any pharmacy. 6. Your sodium has been low in your blood. Normal is 135-145. Your sodium 1 day prior to discharge was 131 and this has been stable. Two od the medications you have been taking can cause a low sodium. Lisinopril and Pantoprazole ( you were taking this because you had blood in the stool) can both decrease the sodium. The sodium was low even prior to starting the pantoprazole so I do not think this is causing the problem. Remeron (mirtazapine) he can also cause low sodium but it does this and less than 1% of patients and that the sodium was low even prior to mirtazapine. We discontinued lisinopril and your blood pressure has been well-controlled. Your primary care doctor will want to follow-up on this. 7. Your kidney function is not normal. You were retaining urine at admission to rehab and you are now taking a medication called Flomax (also called tamsulosin) to help the urine flow better. We were able to get that he Real catheter out and you have been urinating on your own but you still occasionally retain some urine. Your primary care physician will want to follow-up on this. Narcotics can cause urine retention. Make sure to maintain good fluid intake. Try an empty your bladder every 2-3 hours during the day. Sometimes bearing down while urinating will help empty the bladder better. Your primary care doctor will want to recheck the sodium and kidney function within the next 7 to 10 days. 8. You had blood in your stool when you arrived on rehab. Stress can lead to ulcerations in your stomach and you were started on a medication called pantoprazole (also called Protonix) which treats ulcers. Since you have no nausea, no vomiting and no pain in your abdomen we have discontinued pantoprazole because of the low sodium. If you do have recurrent nausea/vomiting/decreased appetite/abdominal pain please discuss this with your primary care doctor. 9. You lost blood with the surgery and you were anemic at the time you arrived on rehab. You were transfused with 1 unit of packed red blood cells. I checked your iron studies prior to discharge from rehab and you are iron deficient. The bone marrow needs iron to make new red blood cells. I have not started you on an iron supplement because you told me that at one time you were going to have your blood taken every 2 weeks because you had too much blood. You will need to discuss this with your primary care doctor. I do not know the reason you were having blood taken every 2 weeks. Your PCP likely has records from the oncologist you saw about why this was necessary. Your blood count is stable but, you are still anemic (lower than normal red blood cell count). You may need to go see the accounting machine mechanic/oncologist again to work this out. 10. I have given you a lot of information. If you have any questions after leaving acute rehab please do not hesitate to call me. 11. The patient requires a hospital bed due to needing frequent changes in position, to alleviate pain that is not feasible in an ordinary bed. Related to Dx of lumbar canal stenosis radiculopathy and recent history of lumbar laminectomy and fusion.. OFFICE: [phone] CELL: [phone] NURSES STATION ON REHAB: [phone] Good luck with your recovery Will. Please do not ignore the things I discussed above. You need to have regular follow up with your PCP to stay on top of your health care. Preventative health care becomes very important as you age. Discharge Orders/Prescriptions Prescriptions: New methocarbamol 750 mg Tablet 750 mg PO 4X/DAY Qty: 120 0RF mirtazapine 15 mg Tablet 15 mg PO QHS Qty: 30 0RF gabapentin 100 mg Capsule 100 mg PO TIDCM Qty: 90 0RF oxycodone 5 mg Tablet 5 - 10 mg PO Q6H PRN PRN (Reason: pain 4-10) 7 Days Qty: 40 0RF Rx Instructions: 1-2 tabs every 6 hours as needed for breakthrough pain. oxycodone [OxyContin] 10 mg Tablet,Oral Only,Ext.Rel.12 Hr 10 mg PO BID 2 Days Qty: 4 0RF multivitamin Tablet 1 tab PO BREAKFAST Qty: 30 0RF sennosides-docusate sodium [Stimulant Laxative Plus] 8.6-50 mg Tablet 2 tab PO BID Qty: 120 0RF polyethylene glycol 3350 17 gram/dose powder 17 g PO DAILY Qty: 510 0RF Continued albuterol sulfate 90 mcg/actuation HFA aerosol inhaler 2 puff inhalation Q6H PRN PRN (Reason: wheezing/sob) atorvastatin 10 mg tablet 10 mg PO QHS calcium carbonate-vitamin D3 [Calcium 500 + D] 500 mg-10 mcg (400 unit) tablet 1 tab PO DAILY levothyroxine 137 mcg tablet 137 mcg PO DAILY nifedipine 30 mg tablet extended release 30 mg PO DAILY tamsulosin [Flomax] 0.4 mg capsule 0.4 mg PO DAILY Qty: 30 0RF Changed acetaminophen 500 mg tablet 1,000 mg PO Q8 PRN (Reason: pain) Qty: 1 0RF Discontinued Cerovite Jr 18 mg iron- 10 mcg tablet,chewable 1 tab PO DAILY lisinopril 20 mg tablet 20 mg PO DAILY methocarbamol 750 mg tablet 750 mg PO TID oxycodone 5 mg tablet 5 mg PO Q6H PRN (Reason: pain) pregabalin [Lyrica] 50 mg capsule 50 mg PO BID No Action melatonin 1 mg tablet 2 mg PO QHS PRN (Reason: sleep) Referrals / Follow Up: Vini Phan [Other] - 03/24/24 11:00 am Mert Pérez MD [Non-Staff] - 03/03/24 2:00 pm Jose David Watters MD [Med Staff - Active Staff] - 02/26/24 3:00 pm Disposition Disposition (needs filled in before D/C Order can be placed): Home Health Service Charges/Coding Visit Charges Inpatient E&M: 57977 Disch Hosp >30min
--- NOTE | 2024-02-25 11:36 | CASEMGMT ---
Addendum entered by Rosibel Larios 02/25/24 14:12: Pt requesting [place]. [place] [facility] [employer] [facility] and [place]. Original Note: [employer] issued LCD 02/23, DC 02/24. EBER spoke with pt and SO throughout multiple phone calls to determine DC planning, along with Dr recommendations for DC. Pt expressed concern with being home alone with SO working full-time and not wanting to put her out, preferring he transfer to [facility], if precert is approved. SW reviewed therapy notes and pt has made significant progress, ambulating long distances, off the unit, Kaitlin for all tasks aside from bathing. SO stated she can assist with bathing, and can take a vacation day 02/25, then will be off work for 4 straight days with pt. EBER explained there is a high likliehood that precert will be denied. Pt is agreeable to DC home and prefers skilled HHC vs OP therapy. EBER offered to provide list of skilled HHC providers including quality and resource data via [employer]. Pt denied list and gave permission for this worker to make referrals. Pt can have a friend transport him home, after his SO is off work about 1600. IDT updated. EBER phoned referral to [facility], but pt is out of service area and suggested [facility]. EBER sent referral to [facility] via [employer]. Plan: DC home with SO 02/24, HHC PT/OT/SN Rosibel Larios, HEALTH DIRECTOR DIGITAL LIBRARIAN
[2024-02-25] MEDS: Ensure Plus High Protein 120 ML LIQUID PO (11:49)
[2024-02-25 18:00] VITALS: BP 110/58; PULSE 70; RESP 17; TEMP 36.5; O2SAT 97
--- NOTE | 2024-02-25 18:03 | NURSING ---
discharged home with family. discharge instructions, medications, and appointments reviewed with pt. denies questions or concerns
== END 2024-02-25 18:00 | disposition home health service (06) | DRG 560 ==
PROVIDERS: Admitting Provider Internal Medicine; Referring Provider Internal Medicine; Visit Provider Internal Medicine
DX: Z47.89 Encounter for other orthopedic aftercare (principal); D62 Acute posthemorrhagic anemia; G24.09 Other drug induced dystonia; E87.1 Hypo-osmolality and hyponatremia; J44.9 Chronic obstructive pulmonary disease, unspecified; N18.31 Chronic kidney disease, stage 3a; I12.9 Hypertensive chronic kidney disease with stage 1 through stage 4 chronic kidney disease, or unspecified chronic kidney disease; E03.9 Hypothyroidism, unspecified; D45 Polycythemia vera; F10.90 Alcohol use, unspecified, uncomplicated; E78.1 Pure hyperglyceridemia; M48.062 Spinal stenosis, lumbar region with neurogenic claudication; G47.33 Obstructive sleep apnea (adult) (pediatric); R19.5 Other fecal abnormalities; E61.1 Iron deficiency; Z87.891 Personal history of nicotine dependence; Z98.1 Arthrodesis status; G47.00 Insomnia, unspecified; Z79.899 Other long term (current) drug therapy; Z79.890 Hormone replacement therapy; G89.29 Other chronic pain; T42.6X5A Adverse effect of other antiepileptic and sedative-hypnotic drugs, initial encounter; N40.1 Benign prostatic hyperplasia with lower urinary tract symptoms; R33.8 Other retention of urine
CPT/HCPCS: 36415; 76604; 80048; 80053; 80076; 81001; 82274; 82570; 82728; 83540; 83550; 83735; 83930; 83935; 84100; 84300; 85025; 85027; 86850; 86900; 86901; 86920; 86922; 94668; 97110; 97116; 97162; 97166; 97530; 97535; 97802; 97803; P9016; A4216